=== PATIENT | female | born 1980 | race Caucasian/White ===

== ENCOUNTER 2016-10-17 17:27 | Emergency (ER) | payer OTHER ==
[2016-10-17 17:43] VITALS: TEMP 97.4
--- NOTE | 2016-10-17 19:04 | ED ---
URI HPI - General Chief Complaint: Upper Respiratory Infection Stated Complaint: POSS PNEUMONIA Time Seen by Provider: 10/17/16 18:28 Source: patient, RN notes reviewed Mode of arrival: ambulatory Limitations: no limitations - History of Present Illness Initial Comments: 36-year-old female presents emergency Department chief complaint cough congestion 2 weeks. Patient states that she started to sinus congestion and upper congestion. She states that has subsided but she continues to cough which is productive. She states the fever (100.5. Patient is a nonsmoker has no lung disease history. Patient states that she's been taking some over-the- counter cough and cold medication with no relief. Patient denies ear pain, scrotal, headache, dizziness. Denies any sick contacts with some her symptoms. Patient has known drug ALLERGIES. - Related Data Previous Rx's Medication Instructions Recorded Levofloxacin [Levaquin] 500 mg PO DAILY #10 tab 10/17/16 Promethaz-Cod 6.25-10 mg/5 ml 5 ml PO Q6HR PRN #120 ml 10/17/16 [Phenergan with Codeine] Allergies Allergy/AdvReac Type Severity Reaction Status Date / Time No Known Allergies Allergy Verified 10/17/16 18:59 Review of Systems ROS Statement: Those systems with pertinent positive or pertinent negative responses have been documented in the HPI. ROS Other: All systems not noted in ROS Statement are negative. Past Medical History Past Medical History: No Reported History History of Any Multi-Drug Resistant Organisms: None Reported Additional Past Surgical History / Comment(s): eye Past Psychological History: No Psychological Hx Reported Smoking Status: Never smoker Past Alcohol Use History: Occasional Past Drug Use History: None Reported General Exam Limitations: no limitations General appearance: alert, in no apparent distress Head exam: Present: atraumatic, normocephalic, normal inspection Eye exam: Present: normal appearance, PERRL, EOMI. Absent: scleral icterus, conjunctival injection, periorbital swelling ENT exam: Present: normal exam, normal oropharynx, mucous membranes moist, TM's normal bilaterally, normal external ear exam Neck exam: Present: normal inspection, full ROM. Absent: tenderness, meningismus, lymphadenopathy Respiratory exam: Present: normal lung sounds bilaterally. Absent: respiratory distress, wheezes, rales, rhonchi, stridor Cardiovascular Exam: Present: regular rate, normal rhythm, normal heart sounds. Absent: systolic murmur, diastolic murmur, rubs, gallop, clicks Course Vital Signs 10/17/16 10/17/16 10/17/16 17:38 18:33 18:46 Temperature 97.4 F L Pulse Rate 82 91 Respiratory 18 16 17 Rate Blood Pressure 85/67 114/75 O2 Sat by Pulse 98 97 Oximetry Medical Decision Making - Medical Decision Making 36-year-old female presented emergency from for cough congestion. Patient has pneumonia on x-ray. Patient was treated with antibiotics. Return parameters were discussed. Disposition Clinical Impression: Pneumonia Disposition: HOME SELF-CARE Condition: Stable Instructions: Bacterial Pneumonia (ED) Additional Instructions: Please return to the Emergency Department if symptoms worsen or any other concerns. Prescriptions: Levofloxacin [Levaquin] 500 mg PO DAILY #10 tab Promethaz-Cod 6.25-10 mg/5 ml [Phenergan with Codeine] 5 ml PO Q6HR PRN #120 ml PRN Reason: Cough Referrals: Dieter Alvarenga DO [Primary Care Provider] - 1-2 days Time of Disposition: 19:15
--- NOTE | 2016-10-17 19:08 | XR ---
EXAMINATION TYPE: XR chest 2V DATE OF EXAM: 10/17/2016 COMPARISON: NONE HISTORY: Cough and fever TECHNIQUE: Frontal and lateral views of the chest are obtained. FINDINGS: Heart and mediastinum are normal. There is evidence of a small infiltrate behind the heart in the left lower lobe. The other lung solares are clear. There are no hilar masses. Pulmonary vascul arity is normal. IMPRESSION: Small left lower lobe pneumonia.
[2016-10-17] MEDS ORDERED: LEVOFLOXACIN 500 MG TAB PO STA (19:13)
[2016-10-17] MEDS ORDERED: predniSONE 50 MG TAB PO STA (19:13)
[2016-10-17 19:28] VITALS: BP 111/58; PULSE 88; RESP 16
== END 2016-10-17 19:29 | disposition home or self-care (01) ==
LOC: EC 17:27
DX: J18.9 Pneumonia, unspecified organism (principal)
CPT/HCPCS: 99283; 71020; J7512

== ENCOUNTER → 2017-06-22 | Outpatient (CLI) | payer BC, OTHER ==
--- NOTE | 2017-06-23 07:14 | CT ---
EXAMINATION TYPE: CT abdomen pelvis w con DATE OF EXAM: 06/22/2017 HISTORY: Abdominal pain and colitis per order. Epigastric pain and gastric reflux per patient. CT DLP: 866mGycm Automated Exposure Control for Dose Reduction was Utilized. CONTRAST: CT scan of the abdomen and pelvis is performed with oral and with IV Contrast, patient injected with 100ml mL of Omnipaque 300. COMPARISON: None. FINDINGS: LUNG BASES: No significant abnormality is appreciated. LIVER/GB: No significant abnormality is appreciated. PANCREAS: No significant abnormality is seen. SPLEEN: No significant abnormality is seen. ADRENALS: No significant abnormality is seen. KIDNEYS: No significant abnormality is seen. BOWEL: Oral contrast reaches level of the proximal sigmoid colon. There is no suspicious small or lar ge bowel dilatation identified. There is mild wall thickening in the sigmoid rectal colon. Normal-miesha earing appendix is seen from cecum. UTERUS/ADNEXA: No gross abnormality seen. LYMPH NODES: No greater than 1cm abdominal or pelvic lymph nodes are appreciated. OSSEOUS STRUCTURES: No significant abnormality is seen. OTHER: No significant additional abnormality is seen. IMPRESSION: Possible mild distal colitis versus product of poor distention due to enteric contrast no t reaching the level of rectum. Correlate clinically. Otherwise unremarkable study.
== END | disposition home or self-care (01) ==
LOC: RADCTMAIN 19:01
PROVIDERS: ATTEND Family Medicine
DX: R10.9 Unspecified abdominal pain (principal)
CPT/HCPCS: 74177; Q9967

== ENCOUNTER 2017-06-26 09:16 | Day surgery (SDC) | payer BC ==
[2017-06-22 14:09] VITALS: BMI 23.3
[~2017-06-26 09:16] MED LIST: LACTATED RINGERS 1,000 ML IV SCH; LIDOCAINE 1% 20 ML VIAL (10MG/ML) FOR IV START INTRADERMA PRN
[2017-06-26 09:44] VITALS: RESP 16; TEMP 98.1
[2017-06-26] MEDS ORDERED: PROPOFOL 10 MG/ML 20 ML VIAL IV ONE (09:46)
--- NOTE | 2017-06-26 09:56 | P.GSHP ---
History of Present Illness H&P Date: 06/26/17 Chief Complaint: GI bleed This is a 36-year-old female referred by Dieter Frausto. Patient's had issues with rectal bleeding. She presents today for colonoscopy. Past Medical History Past Medical History: Thyroid Disorder Additional Past Medical History / Comment(s): BLOOD IN STOOL History of Any Multi-Drug Resistant Organisms: None Reported Additional Past Surgical History / Comment(s): RK SURGERY JESSICA EYES, WISDOM TEETH Past Anesthesia/Blood Transfusion Reactions: No Reported Reaction Smoking Status: Never smoker - Past Family History Mother Family Medical History: No Reported History Medications and Allergies Home Medications Medication Instructions Recorded Confirmed Type Control 1 tab PO HS 06/26/17 06/26/17 History Levothyroxine Sodium [Synthroid] 25 mcg PO DAILY 06/26/17 06/26/17 History Allergies Allergy/AdvReac Type Severity Reaction Status Date / Time No Known Allergies Allergy Verified 06/26/17 09:36 Surgical - Exam Vital Signs Temp Pulse Resp BP Pulse Ox 98.1 F 88 16 113/65 100 06/26/17 09:43 06/26/17 09:43 06/26/17 09:43 06/26/17 09:43 06/26/17 09:43 - General well developed, no distress - Eyes PERRL - ENT normal pinna - Neck no masses - Respiratory normal expansion - Cardiovascular Rhythm: regular - Abdomen Abdomen: soft, non tender Assessment and Plan Assessment: GI bleed. We'll perform colonoscopy.
--- NOTE | 2017-06-26 10:09 | P.OP ---
Date of Procedure: 06/26/17 Preoperative Diagnosis: GI bleed Postoperative Diagnosis: Internal hemorrhoids Procedure(s) Performed: Colonoscopy Anesthesia: MAC Surgeon: Kip Grove Pathology: none sent Condition: stable Disposition: PACU Description of Procedure: Patient's placed on the endoscopy table in the lateral position. She received IV sedation. Digital rectal exam was performed which revealed internal hemorrhoids. The flexible colonoscope was then placed patient anus passed throughout the entire colon. The ileocecal valve was visualized. The cecum, ascending and transverse colon and descending colon appeared normal. The sigmoid colon and rectum was normal. Scope was then brought back through the anus and some small internal hemorrhoids were noted. There is known to any active GI bleed. Scope was withdrawn for patient.
[2017-06-26 10:51] VITALS: BP 102/69; PULSE 78
== END 2017-06-26 11:30 | disposition home or self-care (01) ==
LOC: ORWHC2ENDO 09:16
PROVIDERS: ATTEND Surgery
DX: K64.8 Other hemorrhoids (principal); K92.2 Gastrointestinal hemorrhage, unspecified; E07.9 Disorder of thyroid, unspecified; Z79.3 Long term (current) use of hormonal contraceptives; Z79.899 Other long term (current) drug therapy
CPT/HCPCS: 81025; 45378; J2704

== ENCOUNTER → 2017-10-18 | Outpatient (CLI) | payer BC ==
--- NOTE | 2017-10-18 09:06 | USB ---
Reason for exam: clinical finding. Indicated problem(s): pain in the right breast. Physical Findings: Nurse Summary: Patient complains of pain 6-9 o'clock x 3 weeks (nurse alessandro). US Breast RT Right complete breast ultrasound includes all four quadrants, the retroareolar region and axilla. Finding demonstrates no cystic or solid lesion seen. These results were verbally communicated with the patient and result sheet given to the patient on 10/18/17. ASSESSMENT: Negative, BI-RAD 1 RECOMMENDATION: Routine screening mammogram of both breasts at age 39. Manage patient on a clinical basis.
== END | disposition home or self-care (01) ==
LOC: RADUSWWP 08:15
PROVIDERS: ATTEND Obstetrics & Gynecology Obstetrics
DX: N64.4 Mastodynia (principal)

== ENCOUNTER 2017-11-25 11:02 | Emergency (ER) | payer BC ==
[2017-11-25 11:13] VITALS: BP 106/71; PULSE 72; RESP 18; TEMP 99.1
[2017-11-25] MEDS ORDERED: LIDOCAINE 1% INJ 10MG/ML (20 ML MDV) SQ STA (11:20)
[2017-11-25] MEDS ORDERED: DIPH,PERTUS(ACELL)TETVAC-LF 0.5 ML VIAL IM ONE (11:24)
--- NOTE | 2017-11-25 11:24 | ED ---
General Adult HPI - General Chief complaint: Wound/Laceration Stated complaint: Finger laceration Time Seen by Provider: 11/25/17 11:16 Source: patient, RN notes reviewed Mode of arrival: ambulatory Limitations: no limitations - History of Present Illness Initial comments: Patient 37-year-old female presenting to the emergency room today with a chief complaint of a laceration to the third digit of the right hand. She states she was helping load a trailer when something got sent down trapping her finger she try to pull out causing laceration. Does admit to a smaller laceration superficial to the second digit distally. Patient states she has full range of motion. She states her sensations are intact. She denies any other complaints or symptoms. Does admit to being 7 weeks . Patient denies any recent fever, chills, shortness of breath, chest pain, back pain, abdominal pain, nausea or vomiting, numbness or tingling, headaches or visual changes, or any other complaints. - Related Data Home Medications Medication Instructions Recorded Confirmed Levothyroxine Sodium [Synthroid] 25 mcg PO DAILY 06/26/17 11/25/17 Pnv No.95/Ferrous Fum/Folic AC 1 each PO DAILY 11/25/17 11/25/17 [ Multivitamin Tablet] Allergies Allergy/AdvReac Type Severity Reaction Status Date / Time No Known Allergies Allergy Verified 11/25/17 11:12 Review of Systems ROS Statement: Those systems with pertinent positive or pertinent negative responses have been documented in the HPI. ROS Other: All systems not noted in ROS Statement are negative. Past Medical History Past Medical History: No Reported History History of Any Multi-Drug Resistant Organisms: None Reported Additional Past Surgical History / Comment(s): eye Past Psychological History: No Psychological Hx Reported Smoking Status: Never smoker Past Alcohol Use History: None Reported Past Drug Use History: None Reported General Exam - General Exam Comments Initial Comments: General: The patient is awake and alert, in no distress, and does not appear acutely ill. Neck: The neck is supple, there is no tenderness or JVD. Cardiovascular: There is a regular rate and rhythm. No murmur, rub or gallop is appreciated. Respiratory: Lungs are clear to auscultation, respirations are non-labored, breath sounds are equal. No wheezes, stridor, rales, or rhonchi. Musculoskeletal: Patient does have laceration over the PIP joint of the third digit of the right hand. Patient shows full extension and flexion. Strength 5/ 5. No specific bony tenderness to the right hand right wrist. Radial pulse 2+. Neurological: A&O x 3. CN II-XII intact, There are no obvious motor or sensory deficits. Coordination appears grossly intact. Speech is normal. Skin: Patient does have a 2 cm L-shaped laceration to the posterior aspect of the right third digit at the PIP joint. Psychiatric: Normal mood and affect. Limitations: no limitations Course Vital Signs 11/25/17 11:10 Temperature 99.1 F Pulse Rate 72 Respiratory 18 Rate Blood Pressure 106/71 O2 Sat by Pulse 99 Oximetry Procedures - Procedures Initial comment: 2 cm L-shaped laceration to the right third digit at the PIP joint. The skin was anesthetized with 1% lidocaine. The laceration was then cleansed with and irrigated with normal saline. The wound was inspected, and there was no evidence of injury to deep structures. No foreign body was noted in the wound. A total of 4 skin sutures were placed utilizing 4-0 nylon. Medical Decision Making - Medical Decision Making Patient's laceration was closed here in emergency room. Patient's tetanus updated. Patient advised watch for signs of infection return for any other concerns. Advised to have sutures removed in 7-10 days. Disposition Clinical Impression: Laceration Disposition: HOME SELF-CARE Condition: Good Instructions: Laceration (ED) Additional Instructions: Please return to the emergency room in 7-10 days to have sutures removed. Please watch for any signs of infection which may include increased pain, swelling, redness, fever or chills. Please return to emergency room for any signs of infection do occur. Please use clean soap and water over the area to prevent scabbing over your stitches. Please leave wound covered for the first 24-48 hours and then leave wound open to air. Please return to the emergency room for any other concerns. Is patient prescribed a controlled substance at d/c from ED?: No Referrals: Dieter Alvarenga DO [Primary Care Provider] - 1-2 days Time of Disposition: 12:25
== END 2017-11-25 12:36 | disposition home or self-care (01) ==
LOC: EC 11:02
DX: O9A.211 Injury, poisoning and certain other consequences of external causes complicating pregnancy, first trimester (principal); S61.212A Laceration without foreign body of right middle finger without damage to nail, initial encounter; S61.210A Laceration without foreign body of right index finger without damage to nail, initial encounter; Z79.899 Other long term (current) drug therapy; Z3A.01 Less than 8 weeks gestation of pregnancy; Z23 Encounter for immunization; W22.8XXA Striking against or struck by other objects, initial encounter; Y93.89 Activity, other specified
CPT/HCPCS: 90715; 99282; 12001; 90471; J2001

== ENCOUNTER → 2017-12-05 | Outpatient (CLI) | payer BC ==
--- NOTE | 2017-12-06 08:37 | XR ---
EXAMINATION TYPE: XR hand complete RT DATE OF EXAM: 12/05/2017 COMPARISON: None HISTORY: Middle finger pain TECHNIQUE: Three-view right hand FINDINGS: No acute fractures are evident. Soft tissues are normal. Joint spaces are preserved. IMPRESSION: 1. Normal three-view right hand.
== END | disposition home or self-care (01) ==
LOC: RADXRMAIN 16:09
PROVIDERS: ATTEND Family Medicine
DX: M79.644 Pain in right finger(s) (principal); M79.641 Pain in right hand

== ENCOUNTER 2018-04-10 10:26 | Outpatient (CLI) | payer BC ==
[2018-04-10 10:53] VITALS: BP 118/76; PULSE 71; RESP 16; TEMP 96.6
[2018-04-10] MEDS ORDERED: LACTATED RINGERS 1,000 ML IV SCH ×2 (11:30→15:30)
[2018-04-10] MEDS ORDERED: BETAMET ACET-BETAMETH SOD PHOS 6 MG/ML VIAL IM SCH (13:15)
--- NOTE | 2018-04-10 14:40 | US ---
EXAMINATION TYPE: US OB TV Cervical Measurement DATE OF EXAM: 04/10/2018 COMPARISON: NONE REASON FOR EXAM: Per Ordering Physician?this transvaginal scan is to assess the CERVICAL LENGTH for i ncompetence or funneling. GESTATIONAL AGE / DATING Physician Established: (27 weeks/0 days) EDC: 07/10/2018 MATERNAL/ SURVEY CERVICAL LENGTH (transvaginal: norm> 2.5cm): 4.7 cm smallest of 3 length measurements Ultrasound evidence of shortened cervix? no Ultrasound evidence of funneling? no HEART RATE: 145 bpm RHYTHM: Normal In anterior cervical wall a hypoechoic, complex oval area = 5.4 x 1.1 x 2.0cm is noted mid cervix. IMPRESSION: 1. There appears to be some debris type filling of the cervix. The internal/external cervical os appe ar closed. 2. Cardiac activity is 45 bpm. 3. Fetus is not otherwise evaluated during this examination.
[2018-04-10] MEDS: TERBUTALINE 1 MG/ML VIAL SQ PRN ×3 (15:17→16:00)
== END 2018-04-10 17:50 | disposition home or self-care (01) ==
LOC: FBPOP 10:26
PROVIDERS: ATTEND Obstetrics & Gynecology Obstetrics
DX: O34.32 Maternal care for cervical incompetence, second trimester (principal); Z3A.27 27 weeks gestation of pregnancy
CPT/HCPCS: 99213; 96360; 96361; 96372; 82731; 76817; J3105; J0702

== ENCOUNTER 2018-05-13 20:19 | Outpatient (CLI) | payer BC ==
[2018-05-13] MEDS: TERBUTALINE 1 MG/ML VIAL SQ PRN ×2 (21:31→21:53)
[2018-05-13 21:41] VITALS: BP 108/68; PULSE 75; RESP 16; TEMP 97.3
--- NOTE | 2018-05-29 09:10 | P.MSEPDOC ---
Presenting Problems - Arrival Data Date of Arrival on Unit: 05/13/18 Time of Arrival on Unit: 20:19 Mode of Transport: Wheelchair - Complaint OB-Reason for Admission/Chief Complaint: Possible Onset of Labor Comment: contractions since 1600, 3 to 4 min apart Medical History - Information : 3 Para: 2 Term: 0 : 2 Abortions: Spontaneous or Elective: 0 Number of Living Children: 2 - Gestational Age Gestational Age by CLAY (wks/days): 31 Weeks and 5 Days - History Complications: Prior Review of Systems - Review of Systems Constitutional: No problems Breast: No problems ENT: No problems Cardiovascular: No problems Respiratory: No problems Gastrointestinal: No problems Genitourinary: No problems Musculoskeletal: No problems Neurological: No problems Skin: No problems Vital Signs - Temperature Temperature: 97.3 F Temperature Source: Temporal Artery Scan - Pulse Right Sitting Brachial Pulse Rate: 75 Pulse Assessment Method: Automatic Cuff - Respirations Respiratory Rate: 16 Oxygen Delivery Method: Room Air O2 Sat by Pulse Oximetry: 96 - Blood Pressure Right Arm Sitting Blood Pressure: 108/68 Blood Pressure Mean: 81 Blood Pressure Source: Automatic Cuff Medical Screen Scoring (Pre) - Cervical Exam Dilation: 0 cm = 0 Membranes: Intact - Uterine Contractions Frequency: < 36 weeks = 6 Duration: > 40 seconds = 2 - Maternal Vital Signs Maternal Temperature: N/A Maternal Blood Pressure: N/A Signs of Preeclampsia: N/A Maternal Respirations: N/A - Pain Assessment Pain Location and Character: Abdomen Pain Scale Used: Numeric (1 - 10) Pain Intensity: 2 Pain Description: Cramping Pain Frequency: Intermittent Pain Duration: 4.5 Pain Duration Units: Hours Pain Behavior: None Exhibited Pain Aggravating Factors: Contractions - Assessment Baseline FHR: 145 Heart Rate - NICHD Category: Category I (Normal) = 0 NST: Reactive Position: N/A Station: N/A - Total Score Total Score (Pre): 8 - Level of Risk Level of Risk: Medium (6-9) Physician Notification (Pre) - Physician Notified Physician Notified Date: 05/13/18 Physician Notified Time: 20:59 Physician/Practitioner Notifed:: Dr Олег Hancock Order Received: Yes - Notification Comment Comment: Terbutaline 0.25 SQ up to 3 doses Medical Screen Scoring (Post) - Cervical Exam Dilation: Exam Deferred Effacement: Exam Deferred Membranes: Intact - Uterine Contractions Frequency: > 5 minutes apart = 1 Duration: N/A - Maternal Vital Signs Maternal Temperature: N/A Maternal Blood Pressure: N/A Signs of Preeclampsia: N/A Maternal Respirations: N/A - Pain Assessment Pain Intensity: 1 Pain Aggravating Factors: Contractions - Assessment Heart Rate: 150 Heart Rate - NICHD Category: Category I (Normal) = 0 NST: Reactive - Total Score Total Score (Post): 1 - Post Treatment Level of Risk Post Treatment Level of Risk: Low (0-5) Physician Notification (Post) - Physician Notified Physician Notified Date: 05/13/18 Physician Notified Time: 22:15 Physician/Practitioner Notified:: Олег New Order Received: Yes - Notification Comment Comment: D/C Disposition - Disposition OB Disposition: Discharge to home, Written follow up instructions reviewed Discharge Date: 05/13/18 Discharge Time: 22:20 I agree with the RN Medical Screening Exam: Yes Risk & Benefit of care provided described in d/c instruction: Yes Diagnosis: FALSE LABOR BEFORE 37 COMPLETED WEEKS OF GEST, THIRD TRI
== END 2018-05-13 22:20 | disposition home or self-care (01) ==
LOC: FBPOP 20:19
PROVIDERS: ATTEND Obstetrics & Gynecology
DX: O47.03 False labor before 37 completed weeks of gestation, third trimester (principal); Z3A.31 31 weeks gestation of pregnancy
CPT/HCPCS: 59025; 99214; 96372; 82731; J3105

== ENCOUNTER 2018-05-17 21:23 | Outpatient (CLI) | payer BC ==
[2018-05-17] MEDS: TERBUTALINE 1 MG/ML VIAL SQ PRN ×2 (22:10→22:26)
[2018-05-17 23:11] VITALS: BP 127/58; PULSE 74; RESP 18; TEMP 96.7
--- NOTE | 2018-06-09 11:53 | P.MSEPDOC ---
Presenting Problems - Arrival Data Date of Arrival on Unit: 05/17/18 Time of Arrival on Unit: 21:23 Mode of Transport: Wheelchair - Complaint OB-Reason for Admission/Chief Complaint: Possible Onset of Labor Comment: contractions every 3-5 min apart Medical History - Information : 3 Para: 2 : 2 Abortions: Spontaneous or Elective: 0 Number of Living Children: 2 - Gestational Age Gestational Age by CLAY (wks/days): 32 Weeks and 2 Days - History Complications: Prior Review of Systems - Review of Systems Constitutional: No problems Breast: No problems ENT: No problems Cardiovascular: No problems Respiratory: No problems Gastrointestinal: No problems Genitourinary: No problems Musculoskeletal: No problems Neurological: No problems Skin: No problems Vital Signs - Temperature Temperature: 96.7 F Temperature Source: Temporal Artery Scan - Pulse Right Brachial Pulse Rate: 74 Pulse Assessment Method: Automatic Cuff - Respirations Respiratory Rate: 18 Oxygen Delivery Method: Room Air O2 Sat by Pulse Oximetry: 98 - Blood Pressure Right Arm Blood Pressure: 127/58 Blood Pressure Mean: 81 Blood Pressure Source: Automatic Cuff Medical Screen Scoring (Pre) - Cervical Exam Dilation: 0 cm = 0 Effacement: Exam Deferred Membranes: Intact - Uterine Contractions Frequency: < 36 weeks = 6 Duration: > 40 seconds = 2 Intensity: N/A - Maternal Vital Signs Maternal Temperature: N/A Maternal Blood Pressure: N/A Signs of Preeclampsia: N/A Maternal Respirations: N/A - Pain Assessment Pain Scale Used: Numeric (1 - 10) Pain Intensity: 3 Pain Management Goal: 1 Pain Description: *Acute, Pressure, Tightness Pain Radiation Location: none Pain Frequency: Intermittent Pain Duration: 2 Pain Duration Units: Hours Pain Behavior: Vocalization Pain Aggravating Factors: Contractions - Maternal Trauma Maternal Trauma: N/A - Assessment Baseline FHR: 140 Heart Rate - NICHD Category: Category I (Normal) = 0 NST: Reactive Position: N/A Station: N/A - Total Score Total Score (Pre): 8 - Level of Risk Level of Risk: Medium (6-9) Physician Notification (Pre) - Physician Notified Physician Notified Date: 05/17/18 Physician Notified Time: 22:05 Physician/Practitioner Notifed:: Dr. Montemayor Spoke With: Dr. Montemayor New Order Received: Yes - Notification Comment Comment: treat with terbutaline Medical Screen Scoring (Post) - Cervical Exam Dilation: Exam Deferred Effacement: Exam Deferred Membranes: Intact - Uterine Contractions Frequency: N/A Duration: N/A Intensity: N/A - Maternal Vital Signs Maternal Temperature: N/A Maternal Blood Pressure: N/A Signs of Preeclampsia: N/A Maternal Respirations: N/A - Pain Assessment Pain Scale Used: Numeric (1 - 10) Pain Intensity: 0 - Maternal Trauma Maternal Trauma: N/A - Assessment Heart Rate: 150 Heart Rate - NICHD Category: Category I (Normal) = 0 NST: Reactive Position: N/A Station: N/A - Total Score Total Score (Post): 0 - Post Treatment Level of Risk Post Treatment Level of Risk: Low (0-5) Physician Notification (Post) - Physician Notified Physician Notified Date: 05/17/18 Physician Notified Time: 22:05 Physician/Practitioner Notified:: Dr. Montemayor Spoke With: Dr. Montemayor New Order Received: Yes - Notification Comment Comment: Dr. Munoz ordered terbutaline protocol, if no contractions afer given, pt may be discharged home, 2 doses were given Disposition - Disposition OB Disposition: Triage Discharge Date: 05/17/18 Discharge Time: 22:55 I agree with the RN Medical Screening Exam: Yes Risk & Benefit of care provided described in d/c instruction: Yes Diagnosis: FALSE LABOR, UNSPECIFIED
== END 2018-05-17 22:55 | disposition home or self-care (01) ==
LOC: FBPOP 21:23
PROVIDERS: ATTEND Obstetrics & Gynecology
DX: O47.03 False labor before 37 completed weeks of gestation, third trimester (principal); Z3A.32 32 weeks gestation of pregnancy
CPT/HCPCS: 59025; 99214; 96372; J3105

== ENCOUNTER 2018-05-18 13:19 | Inpatient (IN) | payer BC ==
[2018-05-18 14:41] VITALS: RESP 16
[2018-05-18] MEDS ORDERED: CALCIUM CARBONATE 500 MG CHEWABLE PO PRN (15:06)
[2018-05-18] MEDS ORDERED: DOCUSATE 100 MG CAP PO PRN (15:06)
--- NOTE | 2018-05-18 15:22 | P.HPOB ---
History of Present Illness H&P Date: 05/18/18 Chief Complaint: Contractions This is a 37-year-old 3 para 0202 woman with an estimated due date of who presents at 32+ weeks gestation with contractions. She has been followed closely in this for a history of 2 prior deliveries. Since 27 weeks she has had intermittent episodes of term contractions without cervical change. She received betamethasone 2 at 27 weeks. She has been on progesterone injections weekly starting at 16 weeks. She takes Procardia XL 30 mg daily. She has been seen on 2 occasions in the last 7 days for contractions. She was given terbutaline tocolyse this on each incidence which did decrease contraction activity for the short-term. She had a negative fibronectin on 05/13/2019. Today she reports contractions every 5-20 minutes and becoming more frequent. She therefore came in to labor and delivery for further evaluation. She denies leakage of fluids, vaginal bleeding, fevers, chills, nausea, vomiting, recent intercourse, trauma, decreased movement. Obstetric history: spontaneous vaginal delivery at 30 weeks in 2007. spontaneous vaginal delivery at 36 weeks in 2013. Laboratory data: Blood type A+, antibody screen negative, rubella immune, VDRL nonreactive, hepatitis B surface antigen negative, HIV nonreactive. Review of Systems All systems: negative Past Medical History Past Medical History: No Reported History Additional Past Medical History / Comment(s): delivery at 30 weeks 2007 , delivery at 36 weeks 2013. Hypothyroid. History of Any Multi-Drug Resistant Organisms: None Reported Additional Past Surgical History / Comment(s): eye Past Psychological History: No Psychological Hx Reported Smoking Status: Never smoker Past Alcohol Use History: None Reported Past Drug Use History: None Reported Medications and Allergies Home Medications Medication Instructions Recorded Confirmed Type Levothyroxine Sodium [Synthroid] 25 mcg PO DAILY 06/26/17 05/18/18 History Pnv No.95/Ferrous Fum/Folic AC 1 each PO DAILY 11/25/17 05/18/18 History [ Multivitamin Tablet] NIFEdipine [Procardia] 60 mg PO DAILY 05/13/18 05/18/18 History Allergies Allergy/AdvReac Type Severity Reaction Status Date / Time No Known Allergies Allergy Verified 05/18/18 13:31 Exam Vital Signs Temp Pulse Resp BP 05/18/18 13:33 96.3 F L 78 16 125/80 Intake and Output 05/18/18 05/18/18 05/18/18 06:59 14:59 22:59 Other: Weight 69.853 kg This is a pleasant, visibly gravid, female in no acute distress. HEENT exam is unremarkable. Her breathing is unlabored. Her heart is a regular rate and rhythm. The abdomen is gravid and soft with palpable mild to moderate contractions. On pelvic examination the cervix is 0.5 cm dilated at the external os and closed at the internal os. Cervix is approximately 2-3 cm in length, in the mid position with no presenting part. Assessment and Plan (1) 32 weeks gestation of Current Visit: Yes Status: Acute Code(s): Z3A.32 - 32 WEEKS GESTATION OF SNOMED Code(s): 6222600 (2) contractions Current Visit: Yes Status: Acute Code(s): O47.9 - FALSE LABOR, UNSPECIFIED SNOMED Code(s): 109075687 (3) Previous delivery in third trimester, antepartum Current Visit: Yes Status: Acute Code(s): O09.213 - SUPRVSN OF PREG W HISTORY OF PRE-TERM LABOR, THIRD TRIMESTER SNOMED Code(s): 969993196 (4) Hypothyroid Current Visit: Yes Status: Acute Code(s): E03.9 - HYPOTHYROIDISM, UNSPECIFIED SNOMED Code(s): 22770593 (5) Advanced maternal age (AMA) in Current Visit: Yes Status: Acute Code(s): TJR0462 - SNOMED Code(s): 277872914 Plan: 37 year old 3 para 0202 woman at 32 weeks' gestation with contractions and history of 2 previous deliveries at 30 and 36 weeks. Although her cervix remained unchanged she has had multiple recent triage visits for contractions despite being on prophylactic tocolytics and progesterone weekly injections. She will therefore be admitted for close observation and continuous monitoring. Should she have any concerning cervical change or progression in her uterine activity the plan would be to initiate magnesium sulfate and transport to a tertiary care facility. She has had consultation with the maternal medicine physicians at [facility] earlier in this . status is currently reassuring by external monitoring. Cervical length ultrasound and OB ultrasound for position and growth ordered. Plan is discussed at length with the patient who is comfortable and in agreement with the plan.
--- NOTE | 2018-05-18 17:22 | US ---
EXAMINATION TYPE: US OB TV Cervical Measurement DATE OF EXAM: 05/18/2018 COMPARISON: NONE REASON FOR EXAM: Per Ordering Physician?this transvaginal scan is to assess the CERVICAL LENGTH for i ncompetence or funneling. GESTATIONAL AGE / DATING Physician Established: (32 weeks/ 3 days) EDC: 07/10/18 Dates by Current Scan: MATERNAL/ SURVEY CERVICAL LENGTH (transvaginal: norm> 2.5cm): 4.2 cm Ultrasound evidence of shortened cervix? no Ultrasound evidence of funneling? no Area of debris again visualized measuring 2.1 x 0.8 x 1.7cm PRESENTATION: vertex HEART RATE: 139 bpm RHYTHM: Normal IMPRESSION: Cervix is closed and measures 4.2 cm. There is some mucus in the lower cervical canal.
--- NOTE | 2018-05-18 17:24 | US ---
EXAMINATION TYPE: US OB >= 14 wk fetus DATE OF EXAM: 05/18/2018 COMPARISON: None CLINICAL HISTORY: 32 weeks PTL. Growth, placentation, AFV, position TECHNIQUE: GESTATIONAL AGE / DATING Physician Established: (32 weeks/3 days) EDC: 07/10/18 Dates by First Scan: not available Dates by Current Scan: (31 weeks/6 days) EDC: 07/14/18 Beta HCG (if available): Not available at this time SURVEY IUP: Single PLACENTA: Fundal PREVIA: No Previa MARCI: 10.7 cm CERVICAL LENGTH (transabdominal: norm > 3.0cm): unable to visualize, done vaginally CERVICAL LENGTH (transvaginal: norm> 2.5cm): 4.1 cm (Supplemental transvaginal imaging performed to verify cervical length.) BIOMETRY PRESENTATION: Vertex BPD: 8.4 cm 33 weeks / 5 days HC: 29.1 cm 32 weeks / 0 days AC: 27.7 cm 31 weeks / 5 days FL: 6.1 cm 31 weeks / 6 days ESTIMATED WEIGHT IN GRAMS: 1872 grams ESTIMATED WEIGHT IN LBS/OZ: 4 lbs. 2 oz. WEIGHT PERCENTAGE BASED ON ESTABLISHED DATES: 25% HC/AC: 1.1 FL/AC: 22.2 HEART RATE: 139 bpm RHYTHM: Normal Amniotic fluid is adequate. No complicating process seen. IMPRESSION: Ultrasound gestational age is 31 weeks 6 days.
[2018-05-18 18:37] VITALS: BMI 28.1
[2018-05-18 19:55] LABS: Appearance,Urine Clear (Clear); Bilirubin,Urine Negative (Negative); Blood,Urine Negative (Negative); Color,Urine Colorless; Glucose,Urine (UA) Negative (Negative); Ketones,Urine Negative (Negative); Leukocyte Esterase,Urine Negative (Negative); Nitrite,Urine Negative (Negative); Protein,Urine Negative (Negative); Specific Gravity,Urine 1.003 (1.001-1.035); Urobilinogen,Urine <2.0 mg/dL (<2.0)
[2018-05-19] MEDS: LEVOTHYROXINE 25 MCG TAB PO SCH (06:08)
--- NOTE | 2018-05-19 10:49 | P.PNOBGAP ---
Subjective - Subjective Principal diagnosis: contractions Interval history: She reports "horrible" contractions during the night. She has had continued contraction activity every 2-10 minutes since admission however cervical exam at approximately 3 AM was unchanged. The examiner reported cervix was closed, thick and high. She had a transvaginal cervical length ultrasound and cervical length was 4.0 cm. Antepartum ROS: Reports movement normal, Reports contractions, Denies loss of fluid, Denies vaginal bleeding Objective - Vital Signs Vital Signs: Vital Signs Temp Pulse Resp BP Pulse Ox 05/19/18 08:00 97.0 F L 62 16 104/70 05/18/18 23:46 96.8 F L 71 16 105/67 05/18/18 19:45 97.7 F 88 16 108/66 05/18/18 18:30 97.7 F 80 16 118/65 99 05/18/18 13:33 96.3 F L 78 16 125/80 Intake and Output 05/18/18 05/19/18 05/19/18 22:59 06:59 14:59 Intake Total 600 600 Balance 600 600 Intake: Oral 600 600 Other: # Voids 2 3 Weight 69.853 kg - Exam Abdomen: Present: soft. Absent: tenderness Uterus: Present: normal. Absent: tenderness Comments: ultrasound shows size equal with dates at 32-3/7 weeks, estimated weight in the 25th percentile. Vertex presentation. No previa. Amniotic fluid volume 10.3 cm. Transvaginal cervical length 4.1 cm with no funneling. Assessment and Plan (1) 32 weeks gestation of Current Visit: Yes Status: Acute Code(s): Z3A.32 - 32 WEEKS GESTATION OF SNOMED Code(s): 5444202 (2) contractions Current Visit: Yes Status: Acute Code(s): O47.9 - FALSE LABOR, UNSPECIFIED SNOMED Code(s): 587444979 (3) Previous delivery in third trimester, antepartum Current Visit: Yes Status: Acute Code(s): O09.213 - SUPRVSN OF PREG W HISTORY OF PRE-TERM LABOR, THIRD TRIMESTER SNOMED Code(s): 043252451 (4) Hypothyroid Current Visit: Yes Status: Acute Code(s): E03.9 - HYPOTHYROIDISM, UNSPECIFIED SNOMED Code(s): 37726534 (5) Advanced maternal age (AMA) in Current Visit: Yes Status: Acute Code(s): ESI7648 - SNOMED Code(s): 627349027 Plan: 37 year old 3 para 0202 woman at 32-4/7 weeks gestation admitted with contractions, history of delivery. Objective data all very reassuring with cervical length of greater than 4 cm and no cervical frame changer 24 hours. She does however continue to have painful contraction activity and despite reassurance remains extremely anxious regarding discharge home. We discussed repeating a fibronectin test, was recently negative on 2017, however this cannot be repeated until she is 24 hours from last vaginal examination in order to avoid a false positive test. The plan therefore is for her to remain on hospital supervision until tomorrow at which time I will repeat cervical exam myself as well as collect a fibronectin prior to this. If her cervix remains unchanged and fibronectin is negative I recommend discharge home. I have also recommended discontinuation of Procardia as she has contractions regardless of this medication. The patient and her are in agreement with this plan. status is currently reassuring by external monitoring.
[2018-05-19] MEDS ORDERED: PRENATAL VIT-IRON-FOLIC ACID 1 EACH CAP PO SCH (12:00)
[2018-05-20] MEDS: LEVOTHYROXINE 25 MCG TAB PO SCH (06:48)
[2018-05-20 08:01] VITALS: BP 107/62; PULSE 67; TEMP 96.7
--- NOTE | 2018-05-20 09:02 | P.DS ---
Providers Date of admission: 05/18/18 15:06 Expected date of discharge: 05/20/18 Attending physician: Ursula Rosenthal Primary care physician: Stated None - Discharge Diagnosis(es) (1) 32 weeks gestation of Current Visit: Yes Status: Acute (2) contractions Current Visit: Yes Status: Acute (3) Previous delivery in third trimester, antepartum Current Visit: Yes Status: Acute (4) Hypothyroid Current Visit: Yes Status: Acute (5) Advanced maternal age (AMA) in Current Visit: Yes Status: Acute Hospital Course: This is a 37-year-old 3 para 0202 woman who is admitted at 32+ weeks gestation for contractions, rule out labor. She concerning history of 2 previous deliveries and presented with regular painful contraction activity. Due to her history and significant contraction activity she was admitted for observation. She had a reassuring transvaginal cervical length of 4.1 cm. Despite this she has documented contractions every 2-20 minutes therefore she was kept for 48 hours in order to collect a fibronectin 24 hours after her last cervical exam. That was collected on this morning at which time I also checked her cervix and it was unchanged at 0.5 cm dilated the external os, closed at the internal os, 30% effaced, firm and in the mid position. status has been reassuring throughout her stay by external monitoring. She will be discharged home to decreased activity and pelvic rest with close follow-up in the office. precautions were reviewed again in detail with her. Pertinent Studies: Cervical length ultrasound Patient Condition at Discharge: Good Plan - Discharge Summary New Discharge Prescriptions: Discontinued NIFEdipine [Procardia] 60 mg PO DAILY No Action Levothyroxine Sodium [Synthroid] 25 mcg PO DAILY Pnv No.95/Ferrous Fum/Folic AC [ Multivitamin Tablet] 1 each PO DAILY Discharge Medication List Levothyroxine Sodium [Synthroid] 25 mcg PO DAILY 06/26/17 [History] Pnv No.95/Ferrous Fum/Folic AC [ Multivitamin Tablet] 1 each PO DAILY [History] Follow up Appointment(s)/Referral(s): Ursula Rosenthal DO [Doctor of Osteopathic Medicine] - 3 Days Activity/Diet/Wound Care/Special Instructions: Return to labor and delivery with any leakage of fluids, vaginal bleeding, decreased movement, increased pain or contraction activity above current levels. Discharge Disposition: HOME SELF-CARE
== END 2018-05-20 10:45 | disposition home or self-care (01) | DRG 833 ==
LOC: FBPOP 13:19 → OBSVTOIN 15:06 → 4FBP 15:06
PROVIDERS: ADMIT Obstetrics & Gynecology; ATTEND Obstetrics & Gynecology Obstetrics
DX: O60.03 Preterm labor without delivery, third trimester (principal); Z3A.32 32 weeks gestation of pregnancy; O99.284 Endocrine, nutritional and metabolic diseases complicating childbirth; E03.9 Hypothyroidism, unspecified; Z79.890 Hormone replacement therapy; Z79.899 Other long term (current) drug therapy
CPT/HCPCS: 59025; 76805; 76817; 81003; 82731; 99213

== ENCOUNTER 2018-06-12 06:42 | Outpatient (CLI) | payer BC ==
[2018-06-12 08:10] VITALS: BP 118/71; PULSE 71; RESP 16; TEMP 96.4
--- NOTE | 2018-07-06 10:26 | P.MSEPDOC ---
Presenting Problems - Arrival Data Date of Arrival on Unit: 06/12/18 Time of Arrival on Unit: 06:42 Mode of Transport: Ambulatory - Complaint OB-Reason for Admission/Chief Complaint: Possible Onset of Labor Comment: pt arrived c/o contractions since 3 am on monday. pt arrived to l/d at 7 am to be evulated. pt denies any leaking of fluid or bleeding Medical History - Information : 3 Para: 2 Term: 1 : 1 Abortions: Spontaneous or Elective: 0 Number of Living Children: 2 - Gestational Age Gestational Age by CLAY (wks/days): 36 Weeks and 0 Days Review of Systems - Review of Systems Constitutional: No problems Breast: No problems ENT: No problems Cardiovascular: No problems Respiratory: No problems Gastrointestinal: No problems Genitourinary: No problems Musculoskeletal: No problems Neurological: No problems Skin: No problems Vital Signs - Temperature Temperature: 96.4 F Temperature Source: Temporal Artery Scan - Pulse Right Brachial Pulse Rate: 71 Pulse Assessment Method: Automatic Cuff - Respirations Respiratory Rate: 16 Oxygen Delivery Method: Room Air - Blood Pressure Right Arm Blood Pressure: 118/71 Blood Pressure Mean: 86 Blood Pressure Source: Automatic Cuff Medical Screen Scoring (Pre) - Cervical Exam Dilation: 1-3 cm = 1 Membranes: Intact - Uterine Contractions Frequency: > or = 36 weeks =2 Duration: > 40 seconds = 2 Intensity: N/A - Maternal Vital Signs Maternal Temperature: N/A Maternal Blood Pressure: N/A Signs of Preeclampsia: N/A Maternal Respirations: N/A - Pain Assessment Pain Scale Used: Numeric (1 - 10) Pain Intensity: 5 Pain Management Goal: 2 Pain Description: Cramping Pain Radiation Location: n/a Pain Frequency: Occasional Pain Duration: 5 Pain Duration Units: Minutes Pain Behavior: Vocalization Pain Aggravating Factors: Position Non-Pharmacological Interventions: Position/Reposition, Relaxation Technique - Maternal Trauma Maternal Trauma: N/A - Assessment Baseline FHR: 140 Heart Rate - NICHD Category: Category I (Normal) = 0 NST: Reactive Position: N/A Station: N/A - Total Score Total Score (Pre): 5 Medical Screen Scoring (Post) - Cervical Exam Dilation: 1-3 cm = 1 Membranes: Intact - Uterine Contractions Frequency: > or = 36 weeks =2 Duration: > 40 seconds = 2 Intensity: N/A - Maternal Vital Signs Maternal Temperature: N/A Maternal Blood Pressure: N/A Signs of Preeclampsia: N/A Maternal Respirations: N/A - Assessment Heart Rate: 140 Heart Rate - NICHD Category: Category I (Normal) = 0 NST: Reactive Position: N/A Station: N/A - Total Score Total Score (Post): 5 - Post Treatment Level of Risk Post Treatment Level of Risk: Low (0-5) Physician Notification (Post) - Physician Notified Physician Notified Date: 06/12/18 Physician Notified Time: 08:30 Spoke With: dr leahy New Order Received: Yes - Notification Comment Comment: cervix rechecked with no change noted in cervix. [facility] keep scheduled appointment [place] [address]ahy today Disposition - Disposition OB Disposition: Physician follow up in office, Discharge to home Discharge Date: 06/12/18 Discharge Time: 09:22 I agree with the RN Medical Screening Exam: Yes Risk & Benefit of care provided described in d/c instruction: Yes Diagnosis: FALSE LABOR BEFORE 37 COMPLETED WEEKS OF GEST, THIRD TRI
== END 2018-06-12 09:22 | disposition home or self-care (01) ==
LOC: FBPOP 06:42
PROVIDERS: ATTEND Obstetrics & Gynecology
DX: O47.03 False labor before 37 completed weeks of gestation, third trimester (principal); Z3A.36 36 weeks gestation of pregnancy
CPT/HCPCS: 59025; 99213

== ENCOUNTER 2018-06-23 14:27 | Inpatient (IN) | payer BC ==
[2018-06-23] MEDS ORDERED: CARBOPROST TROMETHAMINE 250 MCG/ML 1 ML AMP IM PRN (17:18)
[2018-06-23] MEDS ORDERED: METHYLERGONOVINE 0.2 MG/ML 1 ML AMP IM PRN (17:18)
[2018-06-23] MEDS ORDERED: LIDOCAINE 0.5% (PF) 5 MG/ML (50 ML SDV) SQ PRN (17:18)
[2018-06-23] MEDS ORDERED: OXYTOCIN 10 UNIT/ML 1 ML VIAL IM PRN (17:18)
[2018-06-23] MEDS ORDERED: TERBUTALINE 1 MG/ML VIAL SQ PRN (17:18)
[2018-06-23 17:37] VITALS: BMI 29.0
[2018-06-23 18:04] LABS: Basophils # (A) 0.1 k/uL (0-0.2); Basophils % (A) 1 %; Eosinophils # (A) 0.1 k/uL (0-0.7); Eosinophils % (A) 1 %; Lymphocytes # (A) 2.8 k/uL (1.0-4.8); Lymphocytes % (A) 27 %; MCH 31.6 pg (25.0-35.0); MCHC 34.2 g/dL (31.0-37.0); MCV 92.5 fL (80.0-100.0); Mean Platelet Volume 8.3; Monocytes # (A) 0.4 k/uL (0-1.0); Monocytes % (A) 4 %; Neutrophils # (A) 6.7 k/uL (1.3-7.7); Neutrophils % (A) 65 %; Platelet Count 322 k/uL (150-450); RBC 4.11 m/uL (3.80-5.40); RDW 13.8 % (11.5-15.5); WBC 10.3 k/uL (3.8-10.6)
--- NOTE | 2018-06-23 18:37 | P.HPOB ---
History of Present Illness H&P Date: 06/23/18 Chief Complaint: Spontaneous rupture of membranes, IUP at 37 and 4/sevenths weeks This is a very pleasant 37-year-old 3 para 2001 at 37-4/7 weeks with an estimated due date of 07/10 that presented to labor and delivery with complaints of contractions and had spontaneous rupture of membranes on her way to OB. Patient has been watched closely for a history of labor at 36 weeks' weeks with her last child. Patient denied vaginal bleeding and stated contractions were every 5-7 minutes slightly uncomfortable. Patient had routine care with myself. On bloodwork should a blood type of A+, rubella immune, hepatitis B surface antigen negative, HIV negative, RPR nonreactive, GBS negative. Estimated about spontaneous rupture of membranes at 1425 clear in nature. Review of Systems Constitutional: Denies chills, Denies fatigue, Denies fever Cardiovascular: Reports edema Respiratory: Denies cough, Denies dyspnea Gastrointestinal: Denies constipation, Denies diarrhea, Denies nausea, Denies vomiting Genitourinary: Reports Past Medical History Past Medical History: No Reported History Additional Past Medical History / Comment(s): delivery at 30 weeks 2007 , delivery at 36 weeks 2013. Hypothyroid. History of Any Multi-Drug Resistant Organisms: None Reported Additional Past Surgical History / Comment(s): Eye Surgery, [place] teeth extracted. Past Anesthesia/Blood Transfusion Reactions: No Reported Reaction Past Psychological History: No Psychological Hx Reported Smoking Status: Never smoker Past Alcohol Use History: None Reported Past Drug Use History: None Reported - Past Family History Father Family Medical History: Hypertension Medications and Allergies Home Medications Medication Instructions Recorded Confirmed Type Levothyroxine Sodium [Synthroid] 25 mcg PO DAILY 06/26/17 06/23/18 History Pnv No.95/Ferrous Fum/Folic AC 1 each PO DAILY 11/25/17 06/23/18 History [ Multivitamin Tablet] Allergies Allergy/AdvReac Type Severity Reaction Status Date / Time No Known Allergies Allergy Verified 06/12/18 06:53 Exam Osteopathic Statement: *. No significant issues noted on an osteopathic structural exam other than those noted in the History and Physical/Consult. Vital Signs Temp Pulse Resp BP Pulse Ox 06/23/18 15:00 96.6 F L 88 20 121/77 98 Intake and Output 06/23/18 06/23/18 06/23/18 06:59 14:59 22:59 Other: Weight 72.121 kg Targeted physical exam was performed on this date in general this is a well- nourished well-developed female in active labor, breathing is noted to be nonlabored and heart is known to have a regular rate and rhythm abdomen is noted to be gravid and appropriate for gestational age on exam she is complete/ 100/+2 station and feeling the urge to push. Results Result Diagrams: 06/23/18 16:30 Assessment and Plan (1) Term Current Visit: Yes Status: Acute Code(s): Z34.80 - ENCOUNTER FOR SUPRVSN OF NORMAL , UNSP TRIMESTER SNOMED Code(s): 49528175 (2) Advanced maternal age (AMA) in Current Visit: No Status: Acute Code(s): SHB8270 - SNOMED Code(s): 691998058 (3) Hypothyroid Current Visit: No Status: Acute Code(s): E03.9 - HYPOTHYROIDISM, UNSPECIFIED SNOMED Code(s): 49775646 (4) Previous delivery in third trimester, antepartum Current Visit: No Status: Acute Code(s): O09.213 - SUPRVSN OF PREG W HISTORY OF PRE-TERM LABOR, THIRD TRIMESTER SNOMED Code(s): 018692722 Plan: Patient was admitted previously to labor and delivery as she was noted to have SROM, per rn was 2-3 cm dilated at that time. Pitocin induction of labor was begun. Anticipate spontaneous vaginal delivery
[2018-06-23] MEDS ORDERED: diphenhydrAMINE 25 MG CAP PO PRN (18:38)
[2018-06-23] MEDS ORDERED: LANOLIN CREAM 5 GM TUBE TOPICAL PRN (18:38)
[2018-06-23] MEDS ORDERED: diphenhydrAMINE 50 MG CAP PO PRN (18:38)
[2018-06-23] MEDS ORDERED: ZOLPIDEM 5 MG TAB PO PRN (18:38)
[2018-06-23] MEDS ORDERED: SIMETHICONE 80 MG CHEWABLE PO PRN (18:38)
[2018-06-23] MEDS ORDERED: BENZOCAINE/MENTHOL SPRAY 1 GM/SPRAY AEROSOL TOPICAL PRN (18:38)
[2018-06-23] MEDS ORDERED: diphenhydrAMINE 50 MG/ML 1 ML VIAL IVP PRN ×2 (18:38)
[2018-06-23] MEDS ORDERED: ACETAMINOPHEN TAB 325 MG TAB PO PRN (18:38)
[2018-06-23] MEDS ORDERED: HYDROCORTISONE 2.5% RECTAL CREAM 30 GM TUBE RECTAL PRN (18:38)
[2018-06-23] MEDS ORDERED: WITCH HAZEL 1 EACH MED..PAD TOPICAL PRN (18:38)
--- NOTE | 2018-06-23 18:38 | P.PROBDLV ---
Vaginal Delivery Note - . Vaginal Delivery Note: This is a very pleasant 37-year-old 3 para 2001 at 37-4/7 weeks that presented to labor and delivery with complaints of contractions and spontaneous rupture of membranes. Patient was admitted to labor and delivery Pitocin augmentation of labor was begun. Patient progressed to complete began pushing and had normal spontaneous vaginal delivery of a viable male infant loose nuchal was noted at delivery and this was delivered through. Weight of this was not known at this time is she had the skin to skin. Time of delivery 1822 with Apgars of 9 and 9 at one and 5 minutes respectively. After a 2 minute delay the umbilical cord was doubly clamped and cut and the placenta was delivered spontaneously intact with a three-vessel cord being noted. The placenta was inspected and felt to be completely intact. Afterwards the vaginal vault was inspected and no vaginal lacerations were noted. The uterus is noted to be firm and below the umbilicus. Estimated blood loss 200 mL. Next Patient and infant tolerated delivery well and are resting comfortably.
[2018-06-23] MEDS: LACTATED RINGERS 1,000 ML IV SCH (18:44)
[2018-06-23] MEDS ORDERED: OXYTOCIN 20 UNITS/1000 ML NS 1,000 ML IV SCH (18:45)
[2018-06-23] MEDS: IBUPROFEN 600 MG TAB PO PRN (19:17)
[2018-06-24 07:05] LABS: Basophils % (A) 0 %; Eosinophils # (A) 0.1 k/uL (0-0.7); Eosinophils % (A) 1 %; HCT 34.6 % (34.0-46.0); HGB 11.4 gm/dL (11.4-16.0); Lymphocytes # (A) 2.9 k/uL (1.0-4.8); Lymphocytes % (A) 27 %; MCH 30.4 pg (25.0-35.0); MCHC 33.1 g/dL (31.0-37.0); MCV 91.8 fL (80.0-100.0); Mean Platelet Volume 7.4; Monocytes # (A) 0.6 k/uL (0-1.0); Monocytes % (A) 5 %; Neutrophils # (A) 7.1 k/uL (1.3-7.7); Neutrophils % (A) 64 %; Platelet Count 286 k/uL (150-450); RBC 3.76 m/uL (3.80-5.40); RDW 13.7 % (11.5-15.5)
[2018-06-24] MEDS: IBUPROFEN 600 MG TAB PO PRN ×2 (09:21→15:53)
[2018-06-24] MEDS: SENNOSIDES-DOCUSATE SODIUM 1 EACH TAB PO SCH ×3 (09:22→21:58)
--- NOTE | 2018-06-24 10:35 | P.PNOBGVD ---
Subjective - Subjective Principal diagnosis: PPD 1 Interval history: Patient has done well since delivery. She states this morning she is without discomfort. She is ambulating and voiding without difficulty. She denies concerns. Patient reports: Reports appetite normal, Reports voiding normally, Reports pain well controlled, Reports ambulating normally : doing well Objective - Latest Vital Signs Latest vital signs: Vital Signs Temp Pulse Resp BP Pulse Ox 06/24/18 08:00 98.6 F 96 18 128/68 99 06/24/18 04:00 98.5 F 81 16 122/66 96 06/24/18 00:00 98.7 F 84 16 112/71 06/23/18 20:54 97.3 F L 73 16 117/69 06/23/18 20:23 97.4 F L 82 16 121/62 06/23/18 19:54 97.3 F L 73 16 116/66 06/23/18 19:39 97.3 F L 81 16 122/63 06/23/18 19:02 68 17 118/63 06/23/18 18:55 74 17 139/73 06/23/18 18:32 74 16 122/60 06/23/18 15:00 96.6 F L 88 20 121/77 98 Intake and Output 06/23/18 06/24/18 06/24/18 22:59 06:59 14:59 Other: # Voids 1 1 # Bowel Movements 1 Weight 72.121 kg - Exam Lungs: bilateral: normal Extremities: Present: normal, edema Abdomen: Present: normal appearance, soft Uterus: Present: normal, firm - Labs Labs: Abnormal Lab Results - Last 24 Hours (Table) 06/24/18 Range/Units 06:41 WBC 11.0 H (3.8-10.6) k/uL RBC 3.76 L (3.80-5.40) m/uL Assessment and Plan (1) Term Current Visit: Yes Status: Acute Code(s): Z34.80 - ENCOUNTER FOR SUPRVSN OF NORMAL , UNSP TRIMESTER SNOMED Code(s): 16403466 (2) Advanced maternal age (AMA) in Current Visit: No Status: Acute Code(s): EMK9048 - SNOMED Code(s): 045644228 (3) Hypothyroid Current Visit: No Status: Acute Code(s): E03.9 - HYPOTHYROIDISM, UNSPECIFIED SNOMED Code(s): 37378379 (4) Previous delivery in third trimester, antepartum Current Visit: No Status: Acute Code(s): O09.213 - SUPRVSN OF PREG W HISTORY OF PRE-TERM LABOR, THIRD TRIMESTER SNOMED Code(s): 974112863 (5) Status post normal vaginal delivery Current Visit: Yes Status: Acute Code(s): HAG7737 - SNOMED Code(s): 288428718 Plan: We'll continue routine care, patient wishes to stay until day #2 anticipate discharge tomorrow morning.
[2018-06-24] MEDS: LACTATED RINGERS 1,000 ML IV SCH ×3 (21:56→21:59)
[2018-06-25 00:32] VITALS: RESP 16
--- NOTE | 2018-06-25 08:07 | P.DS ---
Providers Date of admission: 06/23/18 14:52 Expected date of discharge: 06/25/18 Attending physician: Ursula Rosenthal Primary care physician: Stated None - Discharge Diagnosis(es) (1) Term Current Visit: Yes Status: Acute (2) Advanced maternal age (AMA) in Current Visit: No Status: Acute (3) Hypothyroid Current Visit: No Status: Acute (4) Previous delivery in third trimester, antepartum Current Visit: No Status: Acute (5) Status post normal vaginal delivery Current Visit: Yes Status: Acute Hospital Course: This is a pleasant 37-year-old 3 para 2001 at 37-4/7 weeks that presented to labor and delivery with complaints of spontaneous rupture of membranes as she was making her way to the OB floor for rule out labor. Patient noted the fluid to be clear in nature. Patient was admitted to labor and delivery contractions were noted to be irregular Pitocin augmentation of labor was begun patient progressed to complete began pushing and had a normal spontaneous vaginal delivery of a viable male infant at 1822, weight of 5 lbs. 6 oz. with Apgars of 9 and 9 at one and 5 minutes respectively. Patient's course has been uneventful. She is a bleeding and voiding without difficulty. She is tolerating a regular diet without difficulty. She is breast -feeding without difficulty. She discharge home today on this post day # 2 Patient Condition at Discharge: Good Plan - Discharge Summary New Discharge Prescriptions: No Action Levothyroxine Sodium [Synthroid] 25 mcg PO DAILY Pnv No.95/Ferrous Fum/Folic AC [ Multivitamin Tablet] 1 each PO DAILY Discharge Medication List Levothyroxine Sodium [Synthroid] 25 mcg PO DAILY 06/26/17 [History] Pnv No.95/Ferrous Fum/Folic AC [ Multivitamin Tablet] 1 each PO DAILY [History] Follow up Appointment(s)/Referral(s): Ursula Rosenthal DO [Doctor of Osteopathic Medicine] - 4 Weeks Patient Instructions/Handouts: Vaginal Delivery (DC), Vaginal Delivery (GEN) Discharge Disposition: HOME SELF-CARE
[2018-06-25] MEDS: IBUPROFEN 600 MG TAB PO PRN (08:19)
[2018-06-25] MEDS: SENNOSIDES-DOCUSATE SODIUM 1 EACH TAB PO SCH (08:19)
[2018-06-25 08:41] VITALS: BP 122/68; PULSE 85; TEMP 97.6
== END 2018-06-25 11:35 | disposition home or self-care (01) | DRG 807 ==
LOC: FBPOP 14:27 → 4FBP 14:52
PROVIDERS: ADMIT Obstetrics & Gynecology Obstetrics; ATTEND Obstetrics & Gynecology Obstetrics
PROC: 10E0XZZ Delivery of Products of Conception, External Approach (ICD-10-PCS; principal; 2018-06-23)
DX: O99.284 Endocrine, nutritional and metabolic diseases complicating childbirth (principal); Z37.0 Single live birth; E03.9 Hypothyroidism, unspecified; O69.81X0 Labor and delivery complicated by cord around neck, without compression, not applicable or unspecified; Z3A.37 37 weeks gestation of pregnancy; Z82.49 Family history of ischemic heart disease and other diseases of the circulatory system; Z79.890 Hormone replacement therapy; O09.523 Supervision of elderly multigravida, third trimester
CPT/HCPCS: 85025; 86850; 86900; 86901; 88307

== ENCOUNTER → 2018-08-23 | Outpatient (CLI) | payer BC ==
[2018-08-23 17:52] LABS: Basophils # (A) 0.1 k/uL (0-0.2); Basophils % (A) 1 %; Eosinophils # (A) 0.1 k/uL (0-0.7); Eosinophils % (A) 2 %; HCT 37.4 % (34.0-46.0); HGB 12.3 gm/dL (11.4-16.0); Lymphocytes # (A) 2.9 k/uL (1.0-4.8); Lymphocytes % (A) 47 %; MCH 30.3 pg (25.0-35.0); MCHC 32.8 g/dL (31.0-37.0); MCV 92.2 fL (80.0-100.0); Mean Platelet Volume 7.1; Monocytes # (A) 0.3 k/uL (0-1.0); Monocytes % (A) 5 %; Neutrophils # (A) 2.5 k/uL (1.3-7.7); Neutrophils % (A) 40 %; Platelet Count 271 k/uL (150-450); RBC 4.06 m/uL (3.80-5.40); RDW 12.8 % (11.5-15.5); WBC 6.1 k/uL (3.8-10.6)
== END | disposition home or self-care (01) ==
LOC: LABPAT 17:19
PROVIDERS: ATTEND Obstetrics & Gynecology
DX: Z01.812 Encounter for preprocedural laboratory examination (principal)
CPT/HCPCS: 36415; 85025

== ENCOUNTER 2018-08-28 06:26 | Day surgery (SDC) | payer BC ==
[2018-08-22 16:03] VITALS: BMI 26.5
[~2018-08-28 06:26] MED LIST changes: +ACETAMINOPHEN IV (For NPO) 100 ML IVPB NR; +DEXAMETHASONE SOD PHOSPHATE 10 MG/ML 1 ML VIAL IV ONE; +HYDROmorphone 0.5 MG/0.5 ML SYRINGE IVP PRN; -LIDOCAINE 1% 20 ML VIAL (10MG/ML) FOR IV START INTRADERMA PRN; +MORPHINE SULFATE 2 MG/ML SYRINGE IV PRN; +ONDANSETRON 4 MG/2 ML VIAL IVP ONE; +ONDANSETRON 4 MG/2 ML VIAL IVP PRN; +Pre Op ABX Message 1 EACH MISC MISCELLANE ONE
[2018-08-28] MEDS ORDERED: LIDOCAINE 1% INJ 10MG/ML (20 ML MDV) ONE (07:28)
[2018-08-28] MEDS ORDERED: fentaNYL (PF) 50 MCG/ML 2 ML AMP ONE (07:28)
[2018-08-28] MEDS ORDERED: MIDAZOLAM 2 MG/2 ML VIAL ONE (07:28)
[2018-08-28] MEDS ORDERED: PROPOFOL 10 MG/ML 20 ML VIAL IV ONE (07:28)
[2018-08-28] MEDS ORDERED: BUPIVACAINE (PF) 0.5% 30 ML VIAL SQ ONE ×2 (08:05)
[2018-08-28] MEDS ORDERED: LIDOCAINE 2% GEL 30 ML TUBE TOPICAL ONE (08:05)
[2018-08-28] MEDS ORDERED: LACTATED RINGERS 1,000 ML IV ONE (08:07)
--- NOTE | 2018-08-28 08:28 | P.OP ---
Date of Procedure: 08/28/18 Preoperative Diagnosis: Undesired fertility Postoperative Diagnosis: Same Procedure(s) Performed: Laparoscopic tubal ligation with Falope-Rings, repair of cervical laceration Anesthesia: GETA Surgeon: Ursula Rosenthal Estimated Blood Loss (ml): 10 IV fluids (ml): 500 Urine output (ml): 100 Pathology: none sent Condition: stable Disposition: PACU Indications for Procedure: Patient request desires permanent sterilization Operative Findings: Normal uterus tubes and ovaries were appreciated Description of Procedure: Patient was seen in the preoperative area and procedure was reviewed once again. Informed consent was obtained and risks reviewed including but not limited to infection, bleeding, damage to bladder, bowel, ureter, other E pelvic structures. Patient stated understanding and wished to proceed. Patient was then taken to the operating suite where general anesthesia was obtained without difficulty by the anesthesia department. She was then prepped and draped in the normal sterile fashion in the dorsal lithotomy position. Red rubber catheter was then used to drain the bladder clear yellow urine. A speculum was placed the anterior lip of the cervix was visualized grasped with single-tooth tenaculum and acorn uterine manipulator was then placed. Attention was then turned the patient's abdomen where in the umbilical fold a small skin incision is made. Through this incision the Veress needle was placed. Once the Veress needle is deemed to be in the appropriate position with a drop in CO2 pressure with insufflation of CO2 gas CO2 insufflation was allowed to occur. Approximately 3 L of gas or used to obtain pneumoperitoneum. At this time the 5 mm trocar with the laparoscope in place placed through the skin incision and toward the pneumoperitoneum. The above noted findings were visualized. At this time the additional port site is placed in the left lower quadrant tooth and progressed from the ASIS. This placed under direct visualization. The fallopian applicator has been opened and the rings were soaking a modicum gently. The left fallopian tube was grasped and the Falope ring applicator was operated according to chief medical director's instructions. This was then repeated on the opposite side hemostasis was appreciated. At this time all instruments were removed from the patient's abdomen. The skin incisions were closed with 4-0 Vicryl subcuticular fashion surgery strips and sterile dressings were applied as needed. Attention was then turned the patient's vaginal vault the acorn uterine manipulator was removed on the anterior cervical laceration was noted and repaired with a [id number] suture of 4-0 chromic. On further inspection hemostasis was appreciated. Next Patient tolerated procedure well all counts were correct 2 patient was taken the recovery room awake in stable condition
[2018-08-28] MEDS ORDERED: MEPERIDINE 50 MG/ML SYRINGE IVP ONE ×2 (08:50)
[2018-08-28 08:58] VITALS: TEMP 97.7
[2018-08-28 10:56] VITALS: BP 113/79; PULSE 65; RESP 16
== END 2018-08-28 11:06 | disposition home or self-care (01) ==
LOC: OR 06:26
PROVIDERS: ATTEND Obstetrics & Gynecology Obstetrics
DX: Z30.2 Encounter for sterilization (principal); N99.71 Accidental puncture and laceration of a genitourinary system organ or structure during a genitourinary system procedure; E03.9 Hypothyroidism, unspecified; Z79.890 Hormone replacement therapy; Z88.8 Allergy status to other drugs, medicaments and biological substances
CPT/HCPCS: 81025; 58671; 57720; J2250; J1100; J2175; J2405; J2001; J3010; J0131; J2704

== ENCOUNTER → 2019-12-20 | Outpatient (CLI) | payer BC | END | disposition home or self-care (01) | LOC: LABWHC1 10:48 | PROVIDERS: ATTEND Family Medicine | DX: R50.9 Fever, unspecified (principal); R05 Cough | CPT/HCPCS: U0003; C9803 ==

== ENCOUNTER 2020-06-17 20:09 | Observation (INO) | payer BC ==
[2020-06-17] MEDS ORDERED: ASPIRIN 81 MG PO STA (20:32)
[2020-06-17 20:48] LABS: Basophils % (A) 1 %; Eosinophils # (A) 0.1 k/uL (0-0.7); Eosinophils % (A) 1 %; HCT 36.3 % (34.0-46.0); HGB 12.3 gm/dL (11.4-16.0); Lymphocytes # (A) 2.1 k/uL (1.0-4.8); Lymphocytes % (A) 41 %; MCH 30.8 pg (25.0-35.0); MCV 90.5 fL (80.0-100.0); Mean Platelet Volume 7.5; Monocytes # (A) 0.3 k/uL (0-1.0); Monocytes % (A) 5 %; Neutrophils # (A) 2.5 k/uL (1.3-7.7); Neutrophils % (A) 49 %; Platelet Count 283 k/uL (150-450); RBC 4.01 m/uL (3.80-5.40); RDW 12.8 % (11.5-15.5); WBC 5.1 k/uL (3.8-10.6)
[2020-06-17 20:58] LABS: ALT 20 U/L (4-34); AST 23 U/L (14-36); African American GFR (CKD) >90 (>60 ml/min/1.73 sqM); Albumin 4.3 g/dL (3.5-5.0); Alkaline Phosphatase 52 U/L (38-126); Anion Gap 9 mmol/L; Blood Urea Nitrogen 7 mg/dL (7-17); Calcium 9.1 mg/dL (8.4-10.2); Carbon Dioxide 27 mmol/L (22-30); Chloride 102 mmol/L (98-107); Glucose 110 mg/dL (74-99); Non-African American GFR(CKD) >90 (>60 ml/min/1.73 sqM); Potassium 3.8 mmol/L (3.5-5.1); Sodium 138 mmol/L (137-145); Total Bilirubin 0.7 mg/dL (0.2-1.3); Total Protein 6.9 g/dL (6.3-8.2)
--- NOTE | 2020-06-17 21:06 | XR ---
EXAMINATION TYPE: XR chest 2V DATE OF EXAM: 06/17/2020 COMPARISON: 10/17/2016 HISTORY: Chest pain TECHNIQUE: FINDINGS: Heart and mediastinum are normal. Lungs are clear. Diaphragm is normal. Bony thorax appears normal. IMPRESSION: Multiple chest. No change.
[2020-06-17 21:10] LABS: D-Dimer 0.33 mg/L FEU (<0.60); Partial Thromboplastin Time 24.1 sec (22.0-30.0); Prothrombin Time 10.6 sec (9.0-12.0)
--- NOTE | 2020-06-17 21:18 | ED ---
Chest Pain HPI - General Chief Complaint: Chest Pain Stated Complaint: SOB,chest pain,covid+ Time Seen by Provider: 06/17/20 20:22 Source: patient Mode of arrival: ambulatory Limitations: no limitations - History of Present Illness Initial Comments: 39-year-old male presenting to the emergency department with a chief complaint of chest pain. States she was diagnosed with covid-19 6 days ago and has been relatively asymptomatic. Patient reports since yesterday she developed exertional chest pain the last for approximately 30 seconds to a minute. States this is particularly evident whenever she is climbing stairs. She denies any associated shortness of breath, lightheadedness, dizziness or diaphoretic episodes.states the pain is midsternal and radiates to the left shoulder typically.she denies smoking. Denies history of hypertension, hyperlipidemia, CAD or family history ofearly cardiac related . denies any headaches, blurred vision, gait instability, one-sided weakness or paresthesias. No exogenous estrogen use, unilateral leg swelling, recent hospitalizations or surgeries, hemoptysis or chemotherapy secondary to metastatic disease. - Related Data Home Medications Medication Instructions Recorded Confirmed Levothyroxine Sodium [Synthroid] 25 mcg PO DAILY 06/26/17 08/28/18 Pnv No.95/Ferrous Fum/Folic AC 1 each PO DAILY 11/25/17 08/22/18 [ Multivitamin Tablet] Allergies Allergy/AdvReac Type Severity Reaction Status Date / Time No Known Allergies Allergy Verified 06/17/20 20:18 Review of Systems ROS Statement: Those systems with pertinent positive or pertinent negative responses have been documented in the HPI. ROS Other: All systems not noted in ROS Statement are negative. EKG Findings - EKG Comments: EKG Findings:: sinus rhythm. Ventricular rate 94, IN 124, QRS 92, QTC 437. Past Medical History Past Medical History: Thyroid Disorder Additional Past Medical History / Comment(s): delivery at 30 weeks 2007, delivery at 36 weeks 2013. Hypothyroid. History of Any Multi-Drug Resistant Organisms: None Reported Additional Past Surgical History / Comment(s): Eye Surgery, [place] teeth extracted. Past Anesthesia/Blood Transfusion Reactions: No Reported Reaction Past Psychological History: No Psychological Hx Reported Smoking Status: Never smoker Past Alcohol Use History: None Reported Past Drug Use History: None Reported - Past Family History Father Family Medical History: Hypertension General Exam Limitations: no limitations General appearance: alert, in no apparent distress Head exam: Present: atraumatic, normocephalic, normal inspection Eye exam: Present: normal appearance, PERRL, EOMI Pupils: Present: normal accommodation ENT exam: Present: normal exam, normal oropharynx, mucous membranes moist, TM's normal bilaterally, normal external ear exam Neck exam: Present: normal inspection, full ROM. Absent: tenderness Respiratory exam: Present: normal lung sounds bilaterally. Absent: respiratory distress, wheezes, chest wall tenderness Cardiovascular Exam: Present: regular rate, normal rhythm, normal heart sounds GI/Abdominal exam: Present: soft. Absent: distended, tenderness, guarding Extremities exam: Present: normal inspection, full ROM, normal capillary refill. Absent: tenderness, pedal edema, joint swelling, calf tenderness Back exam: Present: normal inspection, full ROM Neurological exam: Present: alert, oriented X3, normal gait Psychiatric exam: Present: normal affect, normal mood Skin exam: Present: warm, dry, intact, normal color Course Vital Signs 06/17/20 20:15 Temperature 98.9 F Pulse Rate 102 H Respiratory 18 Rate Blood Pressure 118/79 O2 Sat by Pulse 99 Oximetry Chest Pain MDM - MDM 39-year-old female presents to the emergency department with a chief complaint of chest.. Physical examination is unremarkable.typical chest pain . EKG showing sinus rhythm. Initial troponin is negative. CBC CMP unremarkable. D- dimer negative. Coags within normal limits. Chest x-ray is unremarkable. Patient was diagnosed with Covid +6 days ago.patient was given aspirin in the ED. Patient will be admitted for cardiac observation. Case discussed with Dr. Alicea. Admitting physician is Dr. Alvarenga Cardiac consult Disposition Clinical Impression: Chest pain Disposition: ADMITTED IP TO THIS HOSP Condition: Stable Instructions (If sedation given, give patient instructions): Chest Pain (ED) Is patient prescribed a controlled substance at d/c from ED?: No Referrals: Dieter Alvarenga DO [Primary Care Provider] - 1-2 days Time of Disposition: 21:41
[2020-06-17] MEDS ORDERED: NITROGLYCERIN SL TABS 0.4 MG TAB SUBLINGUAL PRN (21:38)
[2020-06-18 04:35] LABS: Cholesterol 191 mg/dL (<200); HDL Cholesterol 41 mg/dL (40-60); LDL Cholesterol,Calculated 137 mg/dL (0-99); Triglycerides 63 mg/dL (<150)
[2020-06-18] MEDS: ASCORBIC ACID 500 MG TAB PO SCH (08:44)
[2020-06-18] MEDS: CHOLECALCIFEROL 25 MCG (1000 IU) TABLET PO SCH (08:44)
[2020-06-18] MEDS: ZINC SULFATE 220 MG CAP PO SCH (08:44)
[2020-06-18] MEDS ORDERED: ASPIRIN 325 MG TAB PO SCH (09:00)
--- NOTE | 2020-06-18 11:50 | ECHOF ---
Referral Reason:CP MEASUREMENTS -------- HEIGHT: 157.5 cm WEIGHT: 62.1 kg BP: 105/77 RVIDd: 2.8 cm (< 3.3) IVSd: 0.9 cm (0.6 - 1.1) LVIDd: 4.3 cm (3.9 - 5.3) LVPWd: 1.1 cm (0.6 - 1.1) IVSs: 1.5 cm LVIDs: 2.5 cm LVPWs: 1.6 cm LAESV Index (A-L): 20.73 ml/m Ao Diam: 2.6 cm (2.0 - 3.7) AV Cusp: 1.8 cm (1.5 - 2.6) LA Diam: 2.9 cm (2.7 - 3.8) MV EXCURSION: 14.991 mm (> 18.000) MV EF SLOPE: 94 mm/s (70 - 150) EPSS: 0.9 cm MV E Gutierrez: 0.74 m/s MV DecT: 194 ms MV A Gutierrez: 0.72 m/s MV E/A Ratio: 1.04 RAP: 5.00 mmHg RVSP: 23.73 mmHg FINDINGS -------- Sinus rhythm. This was a technically adequate study. The left ventricular size is normal. Left ventricular wall thickness is normal. Overall left vent ricular systolic function is normal with, an EF between 55 - 60 %. The diastolic filling pattern is normal for the age of the patient 6.64. The right ventricle is normal in size. Normal LA size by volume 22+/-6 ml/m2. The right atrial size is normal. Interatrial and interventricular septum intact. The aortic valve is trileaflet and appears structurally normal. There is no evidence of aortic regu rgitation. There is no evidence of aortic stenosis. There is trace mitral regurgitation. Mild tricuspid regurgitation present. There is no evidence of pulmonary hypertension. The right v entricular systolic pressure, as measured by Doppler, is 23.73mmHg. Trace/mild (physiologic) pulmonic regurgitation. The aortic root size is normal. The inferior vena cava is mildly dilated. There is no pericardial effusion. CONCLUSIONS -------- 1. The left ventricular size is normal. 2. Left ventricular wall thickness is normal. 3. Overall left ventricular systolic function is normal with, an EF between 55 - 60 %. 4. The diastolic filling pattern is normal for the age of the patient 6.64 5. There is trace mitral regurgitation. 6. Mild tricuspid regurgitation present. 7. Trace/mild (physiologic) pulmonic regurgitation. 8. The inferior vena cava is mildly dilated. SHRINKING MACHINE OPERATOR: Mary Phillip RDCS
[2020-06-18] MEDS: LEVOTHYROXINE 25 MCG TAB PO SCH (13:06)
--- NOTE | 2020-06-18 13:18 | P.CRDCN ---
History of Present Illness Consult date: 06/18/20 History of present illness: CHIEF COMPLAINT: Chest pain HISTORY OF PRESENT ILLNESS: This is a 39-year-old female with a past medical history significant for hypothyroidism. Patient does not follow with a aquatic laborer. We have been asked to see the patient in consultation for chest pain. Patient was apparently diagnosed with Covid 19 on , 06/11/2020. Patient presented to the hospital with a complaint of chest pain. Per nursing, the patient denies any chest pain at rest. She reported chest discomfort with exertion. No shortness of breath. No nausea or vomiting. No dizziness or lightheadedness. Covid test performed on admission was negative. DIAGNOSTICS: EKG reveals sinus mechanism with no signs of acute ischemia Chest xray negative for acute process Laboratory data: WBC 5.1. Hemoglobin 12.3. Platelet count 283. D-dimer 0.33. Sodium 138. Potassium 3.8. BUN 7. Creatinine 0.75. Magnesium 2.0. Troponin negative 3. Current home cardiac medications include none REVIEW OF SYSTEMS: Thorough review of systems not completed secondary to limited evaluation/ex amination and due to Covid19 PHYSICAL EXAM: Thorough physical exam not completed secondary to limited evaluation/examination and due to Covid19 ASSESSMENT: Chest pain, troponins negative 3 Acute Covid 19 Hypothyroidism PLAN: An acute coronary event has been ruled out Obtain 2D echo to assess cardiac structure and function Dr. Almaraz recommends ID consult as patient tested positive for Covid last week but negative yesterday Further recommendations pending patient course Nurse practitioner note has been reviewed by physician. Signing provider agrees with the documented findings, assessment, and plan of care. Past Medical History Past Medical History: Thyroid Disorder Additional Past Medical History / Comment(s): Hypothyroid. History of Any Multi-Drug Resistant Organisms: None Reported Past Surgical History: Tubal Ligation Additional Past Surgical History / Comment(s): Bilateral eye surgery for vision correction, wisdom teeth extractions Past Anesthesia/Blood Transfusion Reactions: No Reported Reaction Smoking Status: Never smoker - Past Family History Father Family Medical History: Hypertension Mother Family Medical History: No Reported History Additional Family Medical History / Comment(s): Mother is healthy Medications and Allergies Home Medications Medication Instructions Recorded Confirmed Type Levothyroxine Sodium [Synthroid] 25 mcg PO DAILY 06/26/17 06/17/20 History Ascorbic Acid [Vitamin C] 1,000 mg PO DAILY tab 06/18/20 Rx Cholecalciferol [Vitamin D3 (25 50 mcg PO DAILY tablet 06/18/20 Rx Mcg = 1000 Iu)] Zinc Sulfate [Orazinc] 220 mg PO DAILY #30 cap 06/18/20 Rx Allergies Allergy/AdvReac Type Severity Reaction Status Date / Time No Known Allergies Allergy Verified 06/17/20 21:45 Physical Exam Vitals: Vital Signs Temp Pulse Pulse Resp BP BP Pulse Ox 06/18/20 09:59 63 16 06/18/20 09:58 97.7 F 63 16 105/77 100 06/18/20 08:46 69 16 103/73 99 06/18/20 07:00 73 16 99/65 100 06/18/20 03:00 77 16 101/63 99 06/17/20 22:17 80 17 111/75 100 06/17/20 20:15 98.9 F 102 H 18 118/79 99 Intake and Output 06/17/20 06/18/20 06/18/20 22:59 06:59 14:59 Intake Total 300 Balance 300 Intake: Oral 300 Other: Voiding Method Toilet Weight 62.142 kg 62.142 kg Results 06/17/20 20:41 06/17/20 20:41 Cardiac Enzymes 06/17/20 06/17/20 06/17/20 Range/Units 20:41 20:41 23:11 AST 23 (14-36) U/L Troponin I <0.012 <0.012 (0.000-0.034) ng/mL 06/18/20 Range/Units 04:01 AST (14-36) U/L Troponin I <0.012 (0.000-0.034) ng/mL Coagulation 06/17/20 Range/Units 20:41 PT 10.6 (9.0-12.0) sec APTT 24.1 (22.0-30.0) sec Lipids 06/18/20 Range/Units 04:01 Triglycerides 63 (<150) mg/dL Cholesterol 191 (<200) mg/dL HDL Cholesterol 41 (40-60) mg/dL CBC 06/17/20 Range/Units 20:41 WBC 5.1 (3.8-10.6) k/uL RBC 4.01 (3.80-5.40) m/uL Hgb 12.3 (11.4-16.0) gm/dL Hct 36.3 (34.0-46.0) % Plt Count 283 (150-450) k/uL Comprehensive Metabolic Panel 06/17/20 Range/Units 20:41 Sodium 138 (137-145) mmol/L Potassium 3.8 (3.5-5.1) mmol/L Chloride 102 (98-107) mmol/L Carbon Dioxide 27 (22-30) mmol/L BUN 7 (7-17) mg/dL Creatinine 0.75 (0.52-1.04) mg/dL Glucose 110 H (74-99) mg/dL Calcium 9.1 (8.4-10.2) mg/dL AST 23 (14-36) U/L ALT 20 (4-34) U/L Alkaline Phosphatase 52 (38-126) U/L Total Protein 6.9 (6.3-8.2) g/dL Albumin 4.3 (3.5-5.0) g/dL Current Medications Generic Name Dose Route Start Last Admin Trade Name Nazarioq PRN Reason Stop Dose Admin Ascorbic Acid 1,000 mg 06/18/20 09:00 06/18/20 08:44 Ascorbic Acid 500 Mg Tab PO 1,000 mg DAILY MOHINDER Administration Cholecalciferol 50 mcg 06/18/20 09:00 06/18/20 08:44 Cholecalciferol 25 Mcg (1000 Iu) Tablet PO 50 mcg DAILY MOHINDER Administration Levothyroxine Sodium 25 mcg 06/18/20 12:00 06/18/20 13:06 Levothyroxine 25 Mcg Tab PO Not Given DAILY@0630 MOHINDER Nitroglycerin 0.4 mg 06/17/20 21:38 Nitroglycerin Sl Tabs 0.4 Mg Tab SUBLINGUAL Q5M PRN Chest Pain Zinc Sulfate 220 mg 06/18/20 09:00 06/18/20 08:44 Zinc Sulfate 220 Mg Cap PO 220 mg DAILY MOHINDER Administration Intake and Output 06/17/20 06/18/20 06/18/20 22:59 06:59 14:59 Intake Total 300 Balance 300 Intake: Oral 300 Other: Voiding Method Toilet Weight 62.142 kg 62.142 kg Patient Weight 06/19/20 06:59 Weight 62.142 kg 06/17/20 20:41 06/17/20 20:41
--- NOTE | 2020-06-18 13:29 | P.HPIM ---
History of Present Illness H&P Date: 06/18/20 Chief Complaint: Chest pain A 39-year-old female with past medical history of hypothyroidism, diagnosed with Covid-19, 1 week ago, presented to the ER with complaints of exertional midsternal chest pain radiating to left arm lasting approximately 1 minute. Multiple family members also diagnosed with Covid. Denies any lightheadedness, dizziness or focal deficits . Denies shortness of breath. Denies diaphoresis. Reports loss of sense of smell, denies loss of taste. Denies family history of CAD. Chest x-ray reported normal, no change in EKG reporting normal sinus rhy thm, incomplete right bundle branch block. Troponins negative 3. Afebrile, hematology, coagulation and chemistry panels unremarkable. Triglycerides 63, cholesterol 191 LDL 137 HDL 41 . Coronavirus reported not detected. Cardiology consulted. Echo pending. Review of Systems ROS Statement: Those systems with pertinent positive or pertinent negative responses have been documented in the HPI. ROS Other: All systems not noted in ROS Statement are negative. Past Medical History Past Medical History: Thyroid Disorder Additional Past Medical History / Comment(s): delivery at 30 weeks 2007, delivery at 36 weeks 2013. Hypothyroid. History of Any Multi-Drug Resistant Organisms: None Reported Additional Past Surgical History / Comment(s): Eye Surgery, [place] teeth extracted. Past Anesthesia/Blood Transfusion Reactions: No Reported Reaction Past Psychological History: No Psychological Hx Reported Smoking Status: Never smoker Past Alcohol Use History: None Reported Past Drug Use History: None Reported - Past Family History Father Family Medical History: Hypertension Mother Family Medical History: No Reported History Additional Family Medical History / Comment(s): Mother is healthy Medications and Allergies Home Medications Medication Instructions Recorded Confirmed Type Levothyroxine Sodium [Synthroid] 25 mcg PO DAILY 06/26/17 06/17/20 History Ascorbic Acid [Vitamin C] 1,000 mg PO DAILY tab 06/18/20 Rx Cholecalciferol [Vitamin D3 (25 50 mcg PO DAILY tablet 06/18/20 Rx Mcg = 1000 Iu)] Zinc Sulfate [Orazinc] 220 mg PO DAILY #30 cap 06/18/20 Rx Allergies Allergy/AdvReac Type Severity Reaction Status Date / Time No Known Allergies Allergy Verified 06/17/20 21:45 Physical Exam Vitals: Vital Signs Temp Pulse Resp BP Pulse Ox 06/18/20 07:00 73 16 99/65 100 06/18/20 03:00 77 16 101/63 99 06/17/20 22:17 80 17 111/75 100 06/17/20 20:15 98.9 F 102 H 18 118/79 99 Intake and Output 06/17/20 06/18/20 06/18/20 22:59 06:59 14:59 Other: Weight 62.142 kg PHYSICAL EXAM: VITAL SIGNS: As above GENERAL: Sitting up in bed, no acute distress HEENT: Conjunctivae normal. eyes normal. NECK: No JVD. No thyroid enlargement. No LNs CARDIOVASCULAR: S1, S2 regular.. No murmur RESPIRATION: Breath sounds diminished in the bases. No rhonchi or crackles. No bronchial breathing. ABDOMEN: Soft, nontender . No guarding. no masses palpable. No ascites, No hepatosplenomegaly.Bowel sounds heard. LEGS: No edema. no swelling PSYCHIATRY: Alert and oriented X3, mood and affect normal. NERVOUS SYSTEM: Cranial N 2-12 grossly normal. Moves all 4 limbs.No focal deficits. Strength and sensation grossly intact. Skin: Warm and dry, no rash Lymphatic system. No LN neck axilla. Results CBC & Chem 7: 06/17/20 20:41 06/17/20 20:41 Labs: Abnormal Lab Results - Last 24 Hours (Table) 06/17/20 06/18/20 Range/Units 20:41 04:01 Glucose 110 H (74-99) mg/dL LDL Cholesterol, Calc 137 H (0-99) mg/dL Assessment and Plan Assessment: Chest pain, recently diagnosed with Covid-19 1 week ago in addition to multiple family members positive for Covid. Repeated coronavirus PCR reported not detected. Hyperlipidemia Hypothyroidism Plan: Continue on current medication regime ,monitoring and symptomatic treatment. Cardiology consult in place, recommendations pending. Vitamin C vitamin D and zinc added to med regimen. No steroids at this time as patient did not have any pulmonary symptoms, denies shortness of breath. Potential discharge later today, pending final DC recommendations and clearance from cardiology. The impression and plan of care has been dictated as directed. : I performed a history and examination of this patient, discussed the same with the dictator. I agree with the dictator's note ,documented as a scribe. Any additional findings or plans will be noted.
--- NOTE | 2020-06-18 22:51 | CONS ---
CONSULTATION DATE OF SERVICE: 06/18/2020 REASON FOR CONSULTATION: COVID-19 infection. HISTORY OF PRESENT ILLNESS: The patient is a 39-year-old female who apparently was diagnosed with COVID- 19 about a week ago. The patient mentioned she did not have any symptoms at that point. However, her was diagnosed with Covid so she had to go for a Covid test before she could go back to work and then her test came back positive. The patient was doing okay until the day of presentation to the hospital which was yesterday and the patient started having chest pain. The patient's pain has been mostly left side chest area, described to be more of a sharp and mostly on exertion. Intensity was 5 to 6/10 and no radiation. Associated with increasing shortness of breath, lightheadedness. The patient denies having any cough or sputum production. Denies any URI symptoms. Denies any nausea, no vomiting. No abdominal pain or any diarrhea. With these symptoms, the patient was evaluated by the ER physician. On arrival to the ER, the patient has been afebrile. The patient has been saturating 100% on room air. The patient did have a normal white count with no lymphopenia. D-dimer has been normal. Creatinine was normal. Liver enzymes are normal. Cardiac enzymes have been negative. [place] PCR was checked which came back negative. The patient did have a chest x-ray reported negative for any acute infiltrate. Infectious Disease was consulted due to recent Covid 9 testing. REVIEW OF SYSTEMS: Positive points have been mentioned in HPI. Rest of the systems are negative. PAST MEDICAL HISTORY: Thyroid disorder/hypothyroidism. PAST SURGICAL HISTORY: [place] tooth extracted and eye surgery. SOCIAL HISTORY: No history of smoking, drinking or drug use. FAMILY HISTORY: Father history of hypertension. ALLERGIES: No known drug allergies. MEDICATIONS: Include the patient is currently on zinc, Nitrostat, Synthroid, vitamin D3, vitamin C. PHYSICAL EXAMINATION: Her blood pressure 102/69 with a pulse of 82, temperature is 97.9. She is 100% on room air. General description is a middle-aged female lying in bed in no distress. No tachypnea or accessory muscles of respiration use. HEENT: Examination shows no pallor or scleral icterus. Oral mucous membranes dry. No pharyngeal erythema or thrush. NECK: Trachea central. No thyromegaly. Lungs: Unlabored breathing, clear to auscultation anteriorly. No wheeze or crackles. Heart S1, S2. Regular rate and rhythm. No added sounds. ABDOMEN: Soft. No tenderness. No guarding. No rigidity. EXTREMITIES are no edema of the feet. SKIN examination: No rash or mass palpable. NEUROLOGICAL: Patient is awake, alert, oriented times three. Mood and affect normal. LABS: Hemoglobin is 12.2 with white count of 5.1. BUN of 7, creatinine 0.75. Electrolytes have been normal. Liver enzymes are normal. [place] PCR came back negative. Chest x- ray negative. DIAGNOSTIC IMPRESSION AND PLAN: Patient admitted to the hospital with chest pain. This patient apparently recently diagnosed with Covid 19 after the patient has been was tested positive. However, the patient did not have any symptoms except the chest pain. No cough. No diarrhea or antibodies in this patient who is afebrile. She did have a normal white count with no lymphopenia. D-dimer is negative. Chest x-ray negative. Clinically doubt the patient to have acute COVID-19 infection, may be mild infection the patient is already recovered from completely. PLAN: We will check her inflammatory markers in the morning including CRP, LDH, ferritin and if those are normal, no further workup will be recommended. Thank you for this consultation. Will follow this patient along with you MMODL / IJN: [id number] /
[2020-06-18 23:32] VITALS: RESP 16; TEMP 98
[2020-06-19 01:14] VITALS: BP 107/65; PULSE 91
[2020-06-19] MEDS: LEVOTHYROXINE 25 MCG TAB PO SCH (05:32)
--- NOTE | 2020-06-19 09:09 | P.DS ---
Providers Date of admission: 06/17/20 21:43 Expected date of discharge: 06/19/20 Attending physician: Dieter Alvarenga Consults: 06/17/20 21:38 Consult Physician Urgent Consulting Provider: Dnona Wild Consult Reason/Comments: chest pain, serial troponins Do you want consulting provider notified?: Yes 06/18/20 11:12 Consult Physician Routine Consulting Provider: Lindsey Rodney Consult Reason/Comments: covid Do you want consulting provider notified?: Yes Primary care physician: Dieter Alvarenga Hospital Course: Final Diagnoses: Chest pain, recently diagnosed with Covid-19 1 week ago in addition to multiple family members positive for Covid. Repeated coronavirus PCR reported not detected. Normal LV function reported per echo. Hyperlipidemia Hypothyroidism Hospital course: A 39-year-old female with past medical history of hypothyroidism, diagnosed with Covid-19, 1 week ago, presented to the ER with complaints of exertional midsternal chest pain radiating to left arm lasting approximately 1 minute. Multiple family members also diagnosed with Covid. Denies any lightheadedness, dizziness or focal deficits . Denies shortness of breath. Denies diaphoresis. Reports loss of sense of smell, denies loss of taste. Denies family history of CAD. Chest x-ray reported normal, no change in EKG reporting normal sinus rhythm, incomplete right bundle branch block. Troponins negative 3. Afebrile, hematology, coagulation and chemistry panels unremarkable. Triglycerides 63, cholesterol 191 LDL 137 HDL 41 . Coronavirus reported not detected. Cardiology consulted. Echo pending. Echo reported normal LV function, EF 55-60%, trace mitral regurgitation, mild tricuspid regurgitation. No further chest pain. Denies shortness of breath, d- dimer normal, CMP, LDH, ferritin pending. Patient will be discharged home today pending final DC recommendations and clearance from cardiology. The impression and plan of care has been dictated as directed. : I performed a history and examination of this patient, discussed the same with the dictator. I agree with the dictator's note ,documented as a scribe. Any additional findings or plans will be noted. Patient Condition at Discharge: Stable Plan - Discharge Summary Discharge Rx Participant: No New Discharge Prescriptions: New Zinc Sulfate [Orazinc] 220 mg PO DAILY #30 cap Ascorbic Acid [Vitamin C] 1,000 mg PO DAILY tab Cholecalciferol [Vitamin D3 (25 Mcg = 1000 Iu)] 50 mcg PO DAILY tablet Continue Levothyroxine Sodium [Synthroid] 25 mcg PO DAILY Discharge Medication List Levothyroxine Sodium [Synthroid] 25 mcg PO DAILY 06/26/17 [History] Ascorbic Acid [Vitamin C] 1,000 mg PO DAILY tab 06/18/20 [Rx] Cholecalciferol [Vitamin D3 (25 Mcg = 1000 Iu)] 50 mcg PO DAILY tablet 06/18/20 [Rx] Zinc Sulfate [Orazinc] 220 mg PO DAILY #30 cap 06/18/20 [Rx] Follow up Appointment(s)/Referral(s): Dieter Alvarenga DO [Primary Care Provider] - 3 Days Patient Instructions/Handouts: Chest Pain (ED) Activity/Diet/Wound Care/Special Instructions: Pending final DC recommendations and clearance from cardiology. Confirm cardiology follow-up appointment prior to discharge.
[2020-06-19] MEDS: ASCORBIC ACID 500 MG TAB PO SCH (09:32)
[2020-06-19] MEDS: CHOLECALCIFEROL 25 MCG (1000 IU) TABLET PO SCH (09:32)
[2020-06-19] MEDS: ZINC SULFATE 220 MG CAP PO SCH (09:32)
[2020-06-19 10:12] LABS: Ferritin 47.1 ng/mL (10.0-291.0)
[2020-06-19 10:21] LABS: C Reactive Protein <0.4 mg/dL (0.0-0.8); LDH 132 U/L (120-246)
--- NOTE | 2020-06-19 11:54 | P.PN ---
Subjective Progress Note Date: 06/19/20 CHIEF COMPLAINT: Chest pain HISTORY OF PRESENT ILLNESS: Patient examined this morning at the bedside. Patient denies chest pain or pressure. She denies shortness of breath. Vital signs are stable. Echocardiogram completed revealing ejection fraction 55-60%, trace mitral regurgitation, and mild tricuspid regurgitation. PHYSICAL EXAM: VITAL SIGNS: Reviewed. GENERAL: Well-developed in no acute distress. NECK: Supple. No JVD or thyromegaly LUNGS: Respirations even and unlabored. Lungs essentially clear to auscultation bilaterally. HEART: Regular rate and rhythm. S1 and S2 heard. EXTREMITIES: Normal range of motion. No clubbing or cyanosis. Peripheral pulses intact. No lower extremity edema ASSESSMENT: Chest pain, troponins negative 3 Recent diagnosis of Covid 19 Hypothyroidism PLAN: An acute coronary event has been ruled out Patient is stable for discharge from a cardiac standpoint. She is to follow up on an outpatient basis for a stress echocardiogram Nurse practitioner note has been reviewed by physician. Signing provider agrees with the documented findings, assessment, and plan of care. Objective - Vital Signs Vital signs: Vital Signs Temp 98.0 F 06/19/20 01:14 Pulse 91 06/19/20 01:14 Resp 16 06/19/20 01:14 BP 107/65 06/19/20 01:14 Pulse Ox 98 06/19/20 01:14 Intake & Output 06/18/20 06/19/20 06/19/20 18:59 06:59 18:59 Intake Total 700 240 Balance 700 240 Weight 62.142 kg Intake: Oral 700 240 Other: Voiding Method Toilet Toilet # Voids 3 2 - Labs CBC & Chem 7: 06/17/20 20:41 06/17/20 20:41
== END 2020-06-19 10:25 ==
LOC: EC 20:09 → 6NMEDSUR 21:43 → UNDOADMOB 21:43 → 6NMEDSUR 06-18 08:51
PROVIDERS: ADMIT Family Medicine; ATTEND Family Medicine
DX: R07.89 Other chest pain (principal); U07.1 COVID-19; E03.9 Hypothyroidism, unspecified; R43.9 Unspecified disturbances of smell and taste; E78.5 Hyperlipidemia, unspecified; I36.1 Nonrheumatic tricuspid (valve) insufficiency; R06.02 Shortness of breath; R42 Dizziness and giddiness; Z79.890 Hormone replacement therapy; Z79.899 Other long term (current) drug therapy; Z98.51 Tubal ligation status; Z82.49 Family history of ischemic heart disease and other diseases of the circulatory system
CPT/HCPCS: 99285; 36415; 93005 ×2; 93306; 85379 ×2; 80061; 80053; 82728; 83615; 83735; 84484 ×2; 85025; 85610; 85730; 86140; 87635; 71046; G0378 ×3

== ENCOUNTER → 2020-06-29 | Outpatient (CLI) | payer BC ==
--- NOTE | 2020-06-29 16:19 | NM ---
EXAMINATION TYPE: NM hepatobiliary w EF DATE OF EXAM: 06/29/2020 COMPARISON: NONE HISTORY: 39-year-old female K81.9, cholecystitis TECHNIQUE: After the intravenous administration of 4.97 mCi Tc 99m Mebrofenin hepatobiliary scintigra phy is performed. Immediate images post injection. FINDINGS: There is satisfactory initial accumulation of tracer by the liver. The gallbladder is visualized wit hin 10 minutes. The small bowel activity is noted within 4 minutes. At one hour 8 ounces of oral en sure plus is given to mimic CCK and gallbladder ejection fraction is calculated at 80 %, borderline i ncreased. IMPRESSION: 1. No scintigraphic evidence for acute/chronic cholecystitis or biliary dyskinesia. 2. Mildly elevated gallbladder ejection fraction of 80% may be seen with gallbladder hyperkinesis.
== END | disposition home or self-care (01) ==
LOC: RADNMMAIN 12:59
PROVIDERS: ATTEND Family Medicine
DX: K81.9 Cholecystitis, unspecified (principal)
CPT/HCPCS: 78226; A9537

== ENCOUNTER → 2020-08-14 | Outpatient (CLI) | payer BC | END | disposition home or self-care (01) | LOC: LABPAT 16:08 | PROVIDERS: ATTEND Surgery | DX: Z20.822 Contact with and (suspected) exposure to COVID-19 (principal) | CPT/HCPCS: U0003; C9803; U0005 ==

== ENCOUNTER → 2020-08-21 | Day surgery (SDC) | payer BC ==
[2020-08-19 15:01] VITALS: BMI 24.7
[~2020-08-21] MED LIST changes: -ACETAMINOPHEN IV (For NPO) 100 ML IVPB NR; -DEXAMETHASONE SOD PHOSPHATE 10 MG/ML 1 ML VIAL IV ONE; -HYDROmorphone 0.5 MG/0.5 ML SYRINGE IVP PRN; +LIDOCAINE 1% INJ 10MG/ML (20 ML MDV) ONE; +MIDAZOLAM 2 MG/2 ML VIAL ONE; -MORPHINE SULFATE 2 MG/ML SYRINGE IV PRN; -ONDANSETRON 4 MG/2 ML VIAL IVP ONE; -ONDANSETRON 4 MG/2 ML VIAL IVP PRN; +PROPOFOL 10 MG/ML 20 ML VIAL IV ONE; -Pre Op ABX Message 1 EACH MISC MISCELLANE ONE
[2020-08-21 10:18] VITALS: RESP 16; TEMP 97.9
--- NOTE | 2020-08-21 10:43 | P.PCN ---
Date of Procedure: 08/21/20 Preoperative Diagnosis: Epigastric pain Postoperative Diagnosis: Gastric polyp Gastritis Procedure(s) Performed: EGD with biopsy Anesthesia: JASON Surgeon: Jennifer Cartagena Pathology: other (Biopsies duodenum, antrum, esophagus. Gastric polyp.) Condition: stable Disposition: same day Indications for Procedure: 39-year-old female presents for upper endoscopy. She is noted to have epigastric pain and workup was performed of biliary disease. She presents today for further workup for any gastric issue. Risks, benefits and alternatives were provided to the patient. She did provide consent prior to attending the endoscopy suite. Operative Findings: Gastric polyps Gastritis Description of Procedure: The patient was brought into the endoscopy suite and placed in left lateral decubitus position and adequate sedation was achieved using conscious sedation. A bite block was placed in an endoscope was placed in the oropharynx and advanced under endoscopic visualization. The endoscope was advanced through the esophagus into the stomach, through the gastric antrum and in through the pylorus. The third portion of the duodenum was visualized. The endoscope was then slowly withdrawn. The first portion of duodenum appeared endoscopically normal. Biopsies were taken. The antrum was noted to have some mild inflammatory changes. Biopsies were taken. The gastric body distended normally and the gastric folds appeared normal and flattened with insufflation. There were some mild gastric polyps. Forcep polypectomy was performed to remove a few of these polyps for pathologic examination. A retroflexed view of the fundus and GE junction revealed no significant hiatal hernia. The esophagus appeared endoscopically normal. Biopsies were taken. Excess air was removed and the scope was withdrawn and the procedure was completed. This was then sent to postanesthesia care unit in stable condition.
[2020-08-21 11:17] VITALS: BP 124/67; PULSE 75
== END | disposition home or self-care (01) ==
LOC: ORWHC2ENDO 09:56
PROVIDERS: ATTEND Surgery
DX: K29.50 Unspecified chronic gastritis without bleeding (principal); K31.7 Polyp of stomach and duodenum; K20.90 Esophagitis, unspecified without bleeding; E03.9 Hypothyroidism, unspecified; Z79.899 Other long term (current) drug therapy; Z79.890 Hormone replacement therapy
CPT/HCPCS: 81025; 88305; 43239; J2250; J2001; J2704

== ENCOUNTER → 2020-10-08 | Outpatient (CLI) | payer BC | END | disposition home or self-care (01) | LOC: LABPAT 15:05 | PROVIDERS: ATTEND Surgery | DX: Z01.812 Encounter for preprocedural laboratory examination (principal); Z11.52 Encounter for screening for COVID-19 | CPT/HCPCS: U0003; U0005 ==

== ENCOUNTER → 2020-10-15 | Day surgery (SDC) | payer BC ==
[2020-10-14 08:43] VITALS: BMI 24.8
[~2020-10-15] MED LIST changes: +DEXAMETHASONE SOD PHOSPHATE 4 MG/ML 1 ML VIAL IVP ONE; +GLYCOPYRROLATE 0.2 MG/ML 2 ML VIAL ONE; +HEPARIN SODIUM,PORCINE/PF 5,000 UNIT/0.5 ML SYRINGE SQ PRN; +HYDROmorphone 0.5 MG/0.5 ML SYRINGE IVP PRN; +LACTATED RINGERS 1,000 ML IV ONE; +LIDOCAINE 1%-EPI 1:100,000 20 ML VIAL SQ ONE; +METOCLOPRAMIDE 5 MG/ML 2 ML VIAL IVP ONE; +NEOSTIGMINE 1 MG/ML 10 ML VIAL ONE; +ONDANSETRON 4 MG/2 ML VIAL IVP ONE; +ONDANSETRON 4 MG/2 ML VIAL ONE; +ROCURONIUM 10 MG/ML (5 ML VIAL) IV ONE; +SUCCINYLCHOLINE CHLORIDE 100 MG/5 ML SYR IV ONE; +diphenhydrAMINE 50 MG/ML 1 ML VIAL IVP ONE; +ePHEDrine SULFATE/0.9% NACL/PF 50 MG/5 ML SYRINGE IV ONE; +fentaNYL (PF) 50 MCG/ML 2 ML AMP ONE
--- NOTE | 2020-10-15 12:09 | P.GSHP ---
History of Present Illness H&P Date: 10/15/20 39-year-old female presents today for an elective left scopic cholecystectomy. She presented initially presented to the surgical office with complaint of abdominal discomfort for several months. This was in her mid epigastric region and does radiate to the upper shoulder. Her pain did come and go without meals. On workup, patient did have a HIDA scan with CCK performed that did show gallbladder dyskinesia with elevated ejection fraction. - Review of Systems All systems: negative Past Medical History Past Medical History: Thyroid Disorder Additional Past Medical History / Comment(s): delivery at 30 weeks 2007, delivery at 36 weeks 2013. Hypothyroid. History of Any Multi-Drug Resistant Organisms: None Reported Past Surgical History: Tubal Ligation Additional Past Surgical History / Comment(s): Eye Surgery, Humphreys teeth extracted. Past Anesthesia/Blood Transfusion Reactions: No Reported Reaction Smoking Status: Never smoker - Past Family History Father Family Medical History: Hypertension Mother Family Medical History: No Reported History Additional Family Medical History / Comment(s): Mother is healthy Medications and Allergies Home Medications Medication Instructions Recorded Confirmed Type Levothyroxine Sodium [Synthroid] 25 mcg PO QAM 06/26/17 10/14/20 History Allergies Allergy/AdvReac Type Severity Reaction Status Date / Time No Known Allergies Allergy Verified 10/14/20 08:37 Surgical - Exam Osteopathic Statement: *. No significant issues noted on an osteopathic structural exam other than those noted in the History and Physical/Consult. Vital Signs Temp Pulse Resp BP Pulse Ox 97.8 F 63 18 98/55 99 10/15/20 11:08 10/15/20 11:08 10/15/20 11:08 10/15/20 11:08 10/15/20 11:08 - General well developed, well nourished - Respiratory normal respiratory effort - Abdomen Abdomen: soft, non tender - Psychiatric oriented to time, oriented to person, oriented to place Assessment and Plan Plan: Plan is for laparoscopic cholecystectomy. Case was discussed in depth with the patient and the patient's spouse. Risks, benefits and alternatives to the procedure were discussed with the patient including injury to surrounding organs and risk of bleeding along with wound infection. Patient is agreeable and has provided consent prior to attending the operating suite.
--- NOTE | 2020-10-15 13:00 | P.OP ---
Date of Procedure: 10/15/20 Preoperative Diagnosis: Biliary dyskinesia Postoperative Diagnosis: Biliary dyskinesia Procedure(s) Performed: Laparoscopic cholecystectomy Anesthesia: CARITO Surgeon: Jennifer Cartagena Pathology: other (Gallbladder and contents) Condition: stable Disposition: same day Indications for Procedure: 40-year-old female presented secondary to abdominal discomfort in the epigastrium radiating to the shoulder. On workup, she was found to have biliary dyskinesia. Patient has opted for laparoscopic cholecystectomy. Risks, benefits and alternatives were provided to the patient. She did provide consent prior to attending the operating suite. Operative Findings: Distended gallbladder Description of Procedure: Patient was brought into the operating suite and placed in supine position on the operating table. Sedation was provided by anesthesia and the patient underwent endotracheal intubation. The patient was then prepped and draped in regular sterile fashion. A infra umbilical incision was made and dissection was carried to the fascia. The fascia was incised and a 12 mm trocar was placed. Pneumoperitoneum was then achieved. 3 additional 5 mm ports were placed. One was placed in the subxiphoid region and the other 2 were in the right upper q uadrant. The gallbladder was then grasped and retracted. It was noted to be distended. Dissection was carried along the cystic duct and the cystic duct was skeletonized. Similarly, the cystic artery was skeletonized. Critical view was obtained. 2 cuts were placed proximally on the cystic duct and one was placed distally and the cystic duct was ligated. 2 clips were placed proximally on the cystic artery was first distally and the cystic artery was ligated. The gallbladder was then removed from the gallbladder fossa on the liver bed using cautery. Hemostasis was maintained. The gallbladder was then placed in an Endo Catch bag and removed from the abdomen from the 12 mm port site. Irrigation was placed in the right upper quadrant and suctioned. At this point, the 12 mm trocar fascia site was closed with interrupted 0 Vicryl suture under direct vision position using a Cosme-Alysha device. Pneumoperitoneum was released and all ports removed from the abdomen. All skin incisions were then closed with 4-0 Vicryl subcutaneous suture. Sterile dressing was applied. The patient was awakened in the operating suite and taken to postanesthesia care unit in stable condition.
[2020-10-15 13:12] VITALS: TEMP 97.2
[2020-10-15 16:16] VITALS: BP 93/49; PULSE 108; RESP 16
== END | disposition home or self-care (01) ==
LOC: OR 10:52
PROVIDERS: ATTEND Surgery
DX: K81.1 Chronic cholecystitis (principal); E03.9 Hypothyroidism, unspecified; Z98.51 Tubal ligation status; Z98.890 Other specified postprocedural states; Z82.49 Family history of ischemic heart disease and other diseases of the circulatory system; Z79.890 Hormone replacement therapy
CPT/HCPCS: 81025; 88304; 47562; J2250; J1200; J1100; J2710; J2765; J0690; J2405; J2001; J3010; J0330; J2704; J1170; J1644

== ENCOUNTER → 2022-01-07 | Outpatient (CLI) | payer BC ==
--- NOTE | 2022-01-10 07:41 | MM ---
Reason for Exam: Screening (asymptomatic). Last mammogram was performed 5 year(s) and 6 month(s) ago. Patient History: Menarche at age 12. First Full-Term at age 27. Patient has history of breast feeding. Patient used Hormonal Contraceptives for 5 years. Maternal aunt had breast cancer. Maternal grandmother had breast cancer. Last menstrual period: 01/01/2022 Risk Values: Viri 5 year model risk: 0.7%. NCI Lifetime model risk: 10.9%. Prior Study Comparison: 06/17/2016 Bilateral MG screening mammo w CAD - 2, [facility]. 10/18/2017 Right Diagnostic Ultrasound, [facility]. Tissue Density: The breast tissue is heterogeneously dense. This may lower the sensitivity of mammography. Findings: Analyzed By CAD. There is no suspicious group of microcalcifications or new suspicious mass in either breast. Overall Assessment: Negative, BI-RAD 1 Management: Screening Mammogram of both breasts in 1 year. A clinical breast exam by your physician is recommended on an annual basis and results should be correlated with mammographic findings. Electronically signed and approved by: Lakhwinder Cervantes DO
== END | disposition home or self-care (01) ==
LOC: RADMAMWWP 08:35
PROVIDERS: ATTEND Obstetrics & Gynecology Obstetrics
DX: Z12.31 Encounter for screening mammogram for malignant neoplasm of breast (principal); Z80.3 Family history of malignant neoplasm of breast
CPT/HCPCS: 77067

== ENCOUNTER → 2024-04-04 | Outpatient (CLI) | payer BC ==
[2024-04-04 16:01] LABS: HCT 37.2 % (37.2-46.3); HGB 12.5 g/dL (12.0-15.0); MCH 30.5 pg (27.0-32.0); MCHC 33.6 g/dL (32.0-37.0); MCV 90.7 FL (80.0-97.0); Mean Platelet Volume 10.5 FL (9.5-12.2); NRBC Per 100 WBC 0 X 10*3/uL (0.00-0.01); Platelet Count 282 X 10*3/uL (140-440); RDW 12.8 % (11.5-14.5); WBC 5.56 X 10*3/uL (4.50-10.00)
[2024-04-04 16:13] LABS: ALT 16 U/L (8-44); AST 18 U/L (13-35); Albumin 4.2 g/dL (3.8-4.9); Albumin/Globulin Ratio 1.83 Ratio (1.60-3.17); Alkaline Phosphatase 62 U/L (41-126); Carbon Dioxide 25.2 mmol/L (21.6-31.8); Chloride 106 mmol/L (96-109); Globulin 2.3 g/dL (1.6-3.3); Glucose 87 mg/dL (70-110); Potassium 4.4 mmol/L (3.5-5.5); Sodium 140 mmol/L (135-145); Total Bilirubin 0.4 mg/dL (0.3-1.2); Total Protein 6.5 g/dL (6.2-8.2)
== END | disposition home or self-care (01) ==
LOC: LABWHC1 09:03
PROVIDERS: ATTEND Internal Medicine Endocrinology, Diabetes & Metabolism
DX: E03.8 Other specified hypothyroidism (principal); R53.83 Other fatigue
CPT/HCPCS: 36415; 80053; 82533; 82607; 84146; 84443; 84481; 85027

== ENCOUNTER → 2024-06-04 | Outpatient (CLI) | payer BC ==
--- NOTE | 2024-06-04 15:27 | MM ---
Reason for Exam: Screening (asymptomatic). Last mammogram was performed 2 year(s) and 5 month(s) ago. Patient History: Menarche at age 12. First Full-Term at age 27. Premenopausal. Patient has history of breast feeding. Patient used Hormonal Contraceptives for 5 years. Maternal aunt had breast cancer, age 60. Maternal grandmother had breast cancer at or over age 50. Risk Values: Viri 5 year model risk: 0.9%. NCI Lifetime model risk: 10.7%. Prior Study Comparison: 06/17/2016 Bilateral MG screening mammo w CAD - 2, [facility]. 01/07/2022 Bilateral MG screening mammo w CAD, [facility]. Tissue Density: The breasts are heterogeneously dense, which may obscure small masses. Findings: Analyzed By CAD. There is no suspicious group of microcalcifications or new suspicious mass in either breast. Overall Assessment: Negative, BI-RAD 1 Management: Screening Mammogram of both breasts in 1 year. Patient should continue monthly self-breast exams. A clinical breast exam by your physician is recommended on an annual basis. This exam should not preclude additional follow-up of suspicious palpable abnormalities. Note on Viri scores and lifetime risk: 1. A Viri score greater than 3% is considered moderate risk. If this is the case, consider specialist referral to assess eligibility for a risk reducing agent. 2. If overall lifetime risk for the development of breast cancer is 20% or higher, the patient may qualify for future screening with alternating mammogram and breast MRI. [facility], , 06/04/2024 3:24 PM. Electronically signed and approved by: Shahbaz Eaton M.D. Radiologist
== END | disposition home or self-care (01) ==
LOC: RADMAMWWP 12:58
PROVIDERS: ATTEND Family Medicine
DX: Z12.31 Encounter for screening mammogram for malignant neoplasm of breast (principal); Z80.3 Family history of malignant neoplasm of breast; R92.333 Mammographic heterogeneous density, bilateral breasts
CPT/HCPCS: 77063; 77067